=== PATIENT | female | born 1990 | race African-American/Black ===

== ENCOUNTER 2016-11-06 10:27 | Emergency (ER) | payer MEDICAID ==
[2016-11-06] MEDS ORDERED: IBUPROFEN 800 MG TABLET PO ONE (10:45)
--- NOTE | 2016-11-06 10:45 | ER Document Report ---
ED Medical Screen (RME) - General Stated Complaint: CHEST PAIN AND DIFFICULTY BREATHING Time seen by provider: 10:42 Mode of Arrival: Ambulatory Information source: Patient Notes: 26-year-old female complaining of deep left-sided chest pain which is worse with movement and trying to jog this morning. Hurts when she takes a deep breath. Onset was September 28 and it has been intermittent since. Injury. No recent upper respiratory infection. No fever. Implanon. Each episode lasts for days and it's 24 hours a day. TRAVEL OUTSIDE OF THE [place] IN LAST 30 DAYS: No - Related Data Allergies/Adverse Reactions: No Known Allergies Allergy (Verified 03/03/16 14:13) Past Medical History Renal/ Medical History: Reports: Hx Ovarian Cysts Past Surgical History: Reports: Hx Section - x2 - Immunizations Immunizations up to date: Yes Hx Diphtheria, Pertussis, Tetanus Vaccination: Yes - received in clinic during [facility] Physical Exam - Vital signs Vitals: Temp Pulse Resp BP Pulse Ox 99.7 F 83 16 110/63 100 11/06/16 10:41 11/06/16 10:41 11/06/16 10:41 11/06/16 10:41 11/06/16 10:41 Course - Vital Signs Vital signs: Temp Pulse Resp BP Pulse Ox 99.7 F 83 16 110/63 100 11/06/16 10:41 11/06/16 10:41 11/06/16 10:41 11/06/16 10:41 11/06/16 10:41
--- NOTE | 2016-11-06 10:56 | ER Document Report ---
ED Cardiac - General Chief Complaint: Chest Pain Stated Complaint: CHEST PAIN AND DIFFICULTY BREATHING Mode of Arrival: Ambulatory Notes: The patient is a 26-year-old female who presents with 1 week of left sided chest pain, worse when she moves her arms and when she bends down to reach something. She has had this in the past and was told it was gas. She is not taking anything to help. She denies shortness of breath, nausea, vomiting, abdominal pain, leg swelling, OCP use, hemoptysis, family history of early cardiac problems, recent immobilization or surgery or fever. TRAVEL OUTSIDE OF THE [place] IN LAST 30 DAYS: No - Related Data Allergies/Adverse Reactions: No Known Allergies Allergy (Verified 03/03/16 14:13) Past Medical History - General Information source: Patient - Social History Smoking Status: Never Smoker Family History: Reviewed & Not Pertinent Renal/ Medical History: Reports: Hx Ovarian Cysts. Denies: Hx Peritoneal Dialysis Past Surgical History: Reports: Hx Section - x2 - Immunizations Immunizations up to date: Yes Hx Diphtheria, Pertussis, Tetanus Vaccination: Yes - received in clinic during [facility] Review of Systems - Review of Systems Notes: REVIEW OF SYSTEMS: CONSTITUTIONAL: -fevers, -chills EENT: -eye pain, -difficulty swallowing, -nasal congestion CARDIOVASCULAR: +chest pain, -syncope. RESPIRATORY: -cough, -SOB GASTROINTESTINAL: -abdominal pain, - nausea, -vomiting, -diarrhea GENITOURINARY: -dysuria, -hematuria MUSCULOSKELETAL: -back pain, -neck pain SKIN: -rash or skin lesions. HEMATOLOGIC: -easy bruising or bleeding. LYMPHATIC: -swollen, enlarged glands. NEUROLOGICAL: -altered mental status or loss of consciousness, -headache, - neurologic symptoms PSYCHIATRIC: -anxiety, -depression. ALL OTHER SYSTEMS REVIEWED AND NEGATIVE. Physical Exam - Vital signs Vitals: Temp Pulse Resp BP Pulse Ox 99.7 F 83 16 110/63 100 11/06/16 10:41 11/06/16 10:41 11/06/16 10:41 11/06/16 10:41 11/06/16 10:41 - Notes Notes: PHYSICAL EXAMINATION: GENERAL: Well-appearing, well-nourished and in no acute distress. HEAD: Atraumatic, normocephalic. EYES: Pupils equal round and reactive to light, extraocular movements intact, sclera anicteric, conjunctiva are normal. ENT: nares patent, oropharynx clear without exudates. Moist mucous membranes. NECK: Normal range of motion, supple without lymphadenopathy LUNGS: Breath sounds clear to auscultation bilaterally and equal. No wheezes rales or rhonchi. HEART: Regular rate and rhythm without murmurs. Tenderness over left anterior chest wall. ABDOMEN: Soft, nontender, normoactive bowel sounds. No guarding, no rebound. No masses appreciated. EXTREMITIES: Normal range of motion, no pitting or edema. No cyanosis. NEUROLOGICAL: Cranial nerves grossly intact. Normal speech, normal gait. Normal sensory, motor, and reflex exams. PSYCH: Normal mood, normal affect. SKIN: Warm, Dry, normal turgor, no rashes or lesions noted. Course - Re-evaluation Re-evalutation: PERC negative. HEART score 0. Patient's symptoms atypical for ACS, aortic dissection or PE at this time. After ibuprofen, patient's pain has improved. Instructed patient to continue Naprosyn and use heating pads and ice pads to help out with her chest wall pain. Will have patient follow with her primary care physician for further evaluation and treatment of this chest pain in 1-2 days. Patient comfortable with plan. Answered all questions and she understands. - Vital Signs Vital signs: Temp Pulse Resp BP Pulse Ox 99.7 F 83 16 110/63 100 11/06/16 10:41 11/06/16 10:41 11/06/16 10:41 11/06/16 10:41 11/06/16 10:41 - EKG Interpretation by Pa EKG shows normal: Sinus rhythm, Clover, Intervals, QRS Complexes, ST-T Waves Discharge - Discharge Clinical Impression: Chest pain Qualifiers: Chest pain type: intercostal pain Qualified Code(s): R07.82 - Intercostal pain Condition: Good Disposition: HOME, SELF-CARE Additional Instructions: CHEST PAIN OF UNCLEAR CAUSE: The exact cause of your chest pain isn't clear. Fortunately, there is no evidence of a dangerous medical condition. Further testing may be required to find the source of the pain. Most often, we find that this pain is coming from the chest wall -- the muscles or rib joints in the chest. But chest pain can come from the lung and lung lining, the esophagus, the heart valves or heart lining, and even the stomach or gallbladder. Rest. Eat lightly until the pain is gone. We may prescribe medicine for pain and inflammation. You should call the physician immediately if the pain radiates to the shoulder, jaw or arms; if you start to run a fever or develop a cough; or if you develop shortness of breath, or other new or alarming symptoms. NORMAL EXAM AND WORKUP: At this time, your examination and workup show no significant abnormality. No significant abnormal physical findings were noted. All laboratory, EKG, and imaging (x-ray, CT scans, ultrasound) studies that were ordered show no significant abnormality. Although your examination and all studies that were ordered showed no significant abnormal finding, there are no examinations and no studies that are 100% accurate. There is always the possibility that some abnormality could exist and not be detected with physical examination or within the limits and capabilities of laboratory and other studies. You should return or follow up as you were instructed on your visit today for further evaluation if your symptoms do not resolve. CHEST WALL PAIN: Your chest pain may be coming from the chest wall. This is often caused by straining the muscles or joints in the chest during physical activity, direct trauma, coughing, or vigorous vomiting. Persons with arthritis are especially prone to this type of pain, due to inflammation of the cartilage joints near the breast bone. Occasionally, no cause can be found. Rest from strenuous physical activity. This kind of chest pain is usually made worse by movement of the chest. Depending on the symptoms, we may prescribe medicine for pain, muscle relaxation, and antiinflammatory effects. If the pain is new, and seems to be due to muscle strain, cold packs can help. Otherwise, apply gentle warmth to the painful area for 15 minutes every hour or two. You should call contact the doctor immediately if things change. Further evaluation is needed if you develop a fever or cough, if the nature of the pain changes, or if you become short of breath. ACID REFLUX DISEASE (GERD): Gastro-Esophageal Reflux Disease (GERD) is caused by stomach acid refluxing back up into the esophagus. The valve at the end of the esophagus may be weak. This is common in persons with a hiatal hernia. GERD symptoms can include indigestion, chest pain, heartburn, or food "sticking." Certain foods, alcohol, and aspirin can make GERD worse. Treatment depends on the severity. Usually, antacids or acid-suppressing medicines are used. When the esophagus is acutely inflamed, the physician will often prescribe membrane-protective drugs such as Carafate. Some patients benefit from medication such as Reglan that tightens the valve at the top of the stomach. Avoid those foods that bring on your symptoms. For many people, these foods are coffee, chocolate, onions, garlic, and carbonated drinks. Don't use alcohol, aspirin, caffeine, or tobacco. Don't eat late at night -- within 4 hours of bedtime. Don't over-eat. If necessary, elevate the head of your bed about 4 inches so that stomach acid will not roll up into your esophagus. Call the doctor if you develop severe chest pain, inability to swallow fluids, fever, or worsening symptoms. FOLLOW-UP CARE: If you have been referred to a physician for follow-up care, call the physician s office for an appointment as you were instructed or within the next two days. If you experience worsening or a significant change in your symptoms, notify the physician immediately or return to the Emergency Department at any time for re-evaluation. Referrals: HOUSTON DARLING FNP [Primary Care Provider] - Follow up as needed
[2016-11-06 12:55] VITALS: BP 114/56
--- NOTE | 2016-11-06 19:29 | EKG REPORT ---
SEVERITY:- NORMAL ECG - SINUS RHYTHM : Confirmed by: Julio Schroeder MD 06-Nov-2016 19:27:55
== END 2016-11-06 12:51 | disposition home or self-care (01) ==
LOC: ER 10:27
DX: R07.82 Intercostal pain (principal); R06.02 Shortness of breath
CPT/HCPCS: 93005; 99285; 81025; 71020; 93010; J3490

== ENCOUNTER 2017-03-11 00:38 | Emergency (ER) | payer MEDICAID ==
--- NOTE | 2017-03-11 01:36 | RADIOLOGY REPORT (SQ) ---
EXAM DESCRIPTION: KNEE LEFT 4 VIEW COMPLETED DATE/TIME: 03/11/2017 1:29 am REASON FOR STUDY: pain COMPARISON: None. NUMBER OF VIEWS: Four views. TECHNIQUE: AP, lateral, and both oblique radiographic images acquired of the left knee. LIMITATIONS: None. FINDINGS: MINERALIZATION: Normal. BONES: No acute fracture or dislocation. No worrisome bone lesions. JOINT: No effusion. SOFT TISSUES: No soft tissue swelling. No radio-opaque foreign body. OTHER: No other significant finding. IMPRESSION: NEGATIVE STUDY OF THE LEFT KNEE. NO RADIOGRAPHIC EVIDENCE OF ACUTE INJURY. TECHNICAL DOCUMENTATION: JOB ID: [id number] [employer]- All Rights Reserved
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
[2017-03-11 02:10] VITALS: BP 105/51
== END 2017-03-11 02:09 | disposition home or self-care (01) ==
LOC: ER 00:38
DX: M25.562 Pain in left knee (principal)
CPT/HCPCS: 99283

== ENCOUNTER 2017-10-30 12:58 | Emergency (ER) | payer MEDICAID ==
[2017-10-30 13:14] VITALS: BP 118/64
--- NOTE | 2017-10-30 13:29 | ER Document Report ---
HPI - HPI Pain Level: 5 Notes: Patient is a 27-year-old female no significant past medical history presents the ED complaining of nasal congestion/discharge, sore throat, dry nonproductive cough, subjective fever, body ache x 3 days with 1 episode of posttussive emesis without hematemesis. Patient states that she does have trouble breathing when she is having 1 of her coughing fits, but is otherwise ambulatory without any pain or dyspnea on exertion. Patient states she is still eating and drinking without any difficulties. She is urinating normally having normal bowel movements. She has not been using any [id number] meds for symptoms. Patient denies any smoking or IV drug use. Patient denies any drug allergies. Denies any headache, neck pain, chest pain, palpitations, syncope, shortness of breath, wheeze, dyspnea, abdominal pain, nausea/vomiting/ diarrhea, urinary retention, dysuria, hematuria, or rash. - ROS Systems Reviewed and Negative: Yes All other systems reviewed and negative - REPRODUCTIVE Reproductive: REPORTS: : Past Medical History - Social History Smoking Status: Never Smoker Family History: Reviewed & Not Pertinent Renal/ Medical History: Reports: Hx Ovarian Cysts. Denies: Hx Peritoneal Dialysis Past Surgical History: Reports: Hx Section - x2 - Immunizations Immunizations up to date: Yes Hx Diphtheria, Pertussis, Tetanus Vaccination: Yes - received in clinic during [facility] Vertical Provider Document - CONSTITUTIONAL Agree With Documented VS: Yes Notes: PHYSICAL EXAMINATION: GENERAL: Well-appearing, well-nourished and in no acute distress. A&Ox4. Answers questions appropriately. Moves comfortably w/o notable distress HEAD: Atraumatic, normocephalic. EYES: Pupils equal round and reactive to light, extraocular movements intact, sclera anicteric, conjunctiva are normal. ENT: EAC clear b/l. TM's intact b/l without erythema, fluid, or perforation. Nares patent and with clear discharge. oropharynx mild erythema without exudates. 1+ tonsilar hypertrophy without erythema or exudate. No palatine shift. Uvula midline. No tongue protrusion. No drooling, hoarseness, or airway compromise. Moist mucous membranes. No sinus tenderness. NECK: Normal range of motion, supple without lymphadenopathy. No rigidity/ meningismus. LUNGS: Breath sounds clear to auscultation bilaterally and equal. No wheezes rales or rhonchi. No retractions HEART: Regular rate and rhythm without murmurs, rubs, gallops. ABDOMEN: Soft, nontender, nondistended abdomen. No guarding, no rebound. No masses appreciated. Normal bowel sounds present. No CVA tenderness bilaterally. No hepatosplenomegaly. NEUROLOGICAL: Normal speech, normal gait. Normal sensory, motor exams PSYCH: Normal mood, normal affect. SKIN: Warm, Dry, normal turgor, no rashes or lesions noted. - INFECTION CONTROL TRAVEL OUTSIDE OF THE [place] IN LAST 30 DAYS: No - RESPIRATORY O2 Sat by Pulse Oximetry: 99 Course - Re-evaluation Re-evalutation: 10/30/17 14:07 Patient is an afebrile, well-hydrated, 27-year-old female who presents to the ED with acute URI, suspect viral at this time. Vitals are stable. PE is otherwise unremarkable. Rapid influenza was negative. Rapid strep was negative & throat culture pending. No other labs or imaging warranted at this time based on H&P. Low suspicion for any meningitis, sepsis, peritonsillar/ pharyngeal abscess, respiratory compromise, Ta's, or other emergent systemic condition at this time. Patient is aware this condition can change from initial presentation and she needs to monitor symptoms closely. Conservative measures otherwise for symptoms. Recheck with your PCM in 3-5 days. Return to the ED with any worsening/concerning symptoms otherwise as reviewed in discharge. Patient is in agreement. - Vital Signs Vital signs: Temp Pulse Resp BP Pulse Ox 98.8 F 76 14 118/64 99 10/30/17 13:13 10/30/17 13:13 10/30/17 13:13 10/30/17 13:13 10/30/17 13:13 Discharge - Discharge Clinical Impression: Acute URI Condition: Stable Disposition: HOME, SELF-CARE Instructions: Upper Respiratory Illness ([facility]) Additional Instructions: Maintain adequate fluid intake Take meds as directed tylenol/ibuprofen as needed over the counter cold medication as needed for symptoms Humidified air may help Wash your hands regularly Wear a mask when coughing F/u: with your PCM in 3-5 days for a recheck Return to the ED with any fever, worsening pain, chest pain, palpitations, syncope, worsening CASTRO, neck pain/stiffness, shortness of breath, wheezing, drooling, trouble swallowing/breathing, abdominal pain, n/v/d, rash, or worsening/concerning symptoms otherwise. Referrals: [facility] [Provider Group] - Follow up as needed [facility] [Provider Group] - Follow up as needed
[2017-10-30 14:02] LABS: A TYPE INFLUENZA AG NEGATIVE (NEGATIVE); B INFLUENZA AG NEGATIVE (NEGATIVE)
== END 2017-10-30 14:05 | disposition home or self-care (01) ==
LOC: ER 12:58
DX: J06.9 Acute upper respiratory infection, unspecified (principal); R09.81 Nasal congestion; R09.89 Other specified symptoms and signs involving the circulatory and respiratory systems; J02.9 Acute pharyngitis, unspecified; R05 Cough; R50.9 Fever, unspecified; M79.1 Myalgia
CPT/HCPCS: 87070; 87804; 87880; 99283

== ENCOUNTER 2017-12-17 12:22 | Emergency (ER) | payer SELFPAY ==
[2017-12-17] MEDS ORDERED: ONDANSETRON 4 MG TAB.RAPDIS PO ONE (12:49)
[2017-12-17] MEDS ORDERED: DICYCLOMINE HCL 20 MG TABLET PO ONE (12:49)
[2017-12-17] MEDS ORDERED: METOCLOPRAMIDE HCL 10 MG TABLET PO ONE (14:52)
--- NOTE | 2017-12-17 16:02 | ER Document Report ---
ED GI/ - General Chief Complaint: Nausea/Vomiting/Diarrhea Stated Complaint: ABDOMINAL PAIN,VOMITING,DIARRHEA Time Seen by Provider: 12/17/17 12:45 Mode of Arrival: Ambulatory Information source: Patient Notes: Patient is a 27-year-old female who presents to the ER today for 1 day of nausea , vomiting, watery diarrhea, abdominal cramping all over. Patient admits to body aches and chills, denies any fever that she knows of but has not taken her temperature. Patient states that she has not been able to keep any fluids down since last night. TRAVEL OUTSIDE OF THE [place] IN LAST 30 DAYS: No - Related Data Allergies/Adverse Reactions: acetaminophen [From Vicodin] Allergy (Intermediate, Verified 12/17/17 12:24) Hives hydrocodone [From Vicodin] Allergy (Intermediate, Verified 12/17/17 12:24) Hives tramadol Allergy (Intermediate, Verified 12/17/17 12:24) Hives Past Medical History - General Information source: Patient - Social History Smoking Status: Never Smoker Chew tobacco use (# tins/day): No Frequency of alcohol use: None Drug Abuse: None Family History: Reviewed & Not Pertinent Patient has suicidal ideation: No Patient has homicidal ideation: No Renal/ Medical History: Reports: Hx Ovarian Cysts. Denies: Hx Peritoneal Dialysis Past Surgical History: Reports: Hx Section - x2 - Immunizations Immunizations up to date: Yes Hx Diphtheria, Pertussis, Tetanus Vaccination: Yes - received in clinic during [facility] Review of Systems - Review of Systems Constitutional: No symptoms reported EENT: No symptoms reported Cardiovascular: No symptoms reported Respiratory: No symptoms reported Gastrointestinal: See HPI Genitourinary: No symptoms reported Female Genitourinary: No symptoms reported Musculoskeletal: No symptoms reported Skin: No symptoms reported Hematologic/Lymphatic: No symptoms reported Neurological/Psychological: No symptoms reported Physical Exam - Vital signs Vitals: Temp Pulse Resp BP Pulse Ox 98.2 F 93 16 124/81 98 12/17/17 12:25 12/17/17 12:25 12/17/17 12:25 12/17/17 12:25 12/17/17 12:25 - Notes Notes: PHYSICAL EXAMINATION: GENERAL: Mildly ill-appearing, but in no acute distress. HEAD: Atraumatic, normocephalic. EYES: Pupils equal round and reactive to light, extraocular movements intact, sclera anicteric, conjunctiva are normal. ENT: ear canals without erythema or foreign body, TMs pearly carbone with good bony landmarks, nares patent, oropharynx clear without exudates. Moist mucous membranes. NECK: Normal range of motion, supple without lymphadenopathy LUNGS: CTAB and equal. No wheezes rales or rhonchi. HEART: Regular rate and rhythm without murmurs ABDOMEN: Soft, no tenderness. No guarding, no rebound BACK: no vertebral tenderness, normal ROM GI/: no CVA tenderness EXTREMITIES: Normal range of motion, no pitting edema. No cyanosis. NEUROLOGICAL: Cranial nerves grossly intact. Normal sensory/motor exams. PSYCH: Normal mood, normal affect. SKIN: Warm, Dry, normal turgor, no rashes or lesions noted Course - Re-evaluation Re-evalutation: 12/17/17 16:06 Abdominal exam was completely benign, patient states that she was running back and forth to the bathroom having watery diarrhea and vomiting, dry heaving here even after Zofran was given. Reglan did help her belly pain and she has not vomited since being given the Reglan. Patient did have some fluids and tolerated them well. I will send patient home with Reglan, Bentyl and a prescription for Phenergan just in case the Reglan does not work because she is still complaining of being nauseated although she is not vomiting. - Vital Signs Vital signs: Temp Pulse Resp BP Pulse Ox 98.2 F 93 16 124/81 98 12/17/17 12:25 12/17/17 12:25 12/17/17 12:25 12/17/17 12:25 12/17/17 12:25 Discharge - Discharge Clinical Impression: Gastroenteritis Condition: Stable Disposition: HOME, SELF-CARE Instructions: Gastroenteritis (adult) ([facility]) Additional Instructions: Return immediately for any new or worsening symptoms. Follow up with primary care provider, call tomorrow to make followup appointment. Drink plenty of fluids. Prescriptions: Dicyclomine HCl [Bentyl 20 mg Tablet] 20 mg PO QID #20 tablet Metoclopramide HCl [Reglan 10 mg Tablet] 1 - 2 tab PO Q4 PRN #25 tablet PRN Reason: Promethazine HCl [Phenergan 25 mg Tablet] 1 - 2 tab PO Q6H PRN #15 tablet PRN Reason: Forms: Return to Work
[2017-12-17 16:35] VITALS: BP 95/53
== END 2017-12-17 16:12 | disposition home or self-care (01) ==
LOC: ER 12:22
DX: K52.9 Noninfective gastroenteritis and colitis, unspecified (principal); R11.2 Nausea with vomiting, unspecified; R10.84 Generalized abdominal pain; Z88.5 Allergy status to narcotic agent
CPT/HCPCS: 99284; J3490; S0119

== ENCOUNTER 2018-03-07 14:35 | Emergency (ER) | payer MEDICAID ==
[2018-03-07 14:40] VITALS: BP 115/59
--- NOTE | 2018-03-07 14:58 | ER Document Report ---
HPI - HPI Pain Level: 4 Notes: Patient is a 27-year-old female with no significant past medical history who presents to the ED complaining of pain to the PIP joint of her fourth left digit of the hand times 1-2 days. 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 She has not noticed any obvious swelling, bruising, or deformity. Denies any injury otherwise. No redness or warmth associated. Pain does not radiate. Pain is worsened when she tries to flex her finger. Patient states that her finger does feel stiff at times. Denies any headache, fever, neck pain, URI, sore throat, chest pain, palpitations, syncope, cough, shortness of breath, wheeze, dyspnea, abdominal pain, nausea/vomiting/diarrhea, urinary retention, dysuria, hematuria, numbness/tingling, muscle paralysis/weakness, or rash. - ROS Systems Reviewed and Negative: Yes All other systems reviewed and negative - REPRODUCTIVE Reproductive: REPORTS: : Past Medical History - Social History Smoking Status: Never Smoker Family History: Reviewed & Not Pertinent Renal/ Medical History: Reports: Hx Ovarian Cysts. Denies: Hx Peritoneal Dialysis Past Surgical History: Reports: Hx Section - x2 - Immunizations Immunizations up to date: Yes Hx Diphtheria, Pertussis, Tetanus Vaccination: Yes - received in clinic during [facility] Vertical Provider Document - CONSTITUTIONAL Agree With Documented VS: Yes Notes: PHYSICAL EXAMINATION: GENERAL: Well-appearing, well-nourished and in no acute distress and eating fast food during the visit. LUNGS: Breath sounds clear to auscultation bilaterally and equal. No wheezes rales or rhonchi. HEART: Regular rate and rhythm without murmurs, rubs, gallops. Musculoskeletal: Left hand: No erythema, warmth, swelling, ecchymosis, deformity. FROM to passive/active. Strength 5+/5. + tenderness to palp of the PIP jt 4th digit. N/V intact distal. Extremities: No cyanosis, clubbing, or edema b/l. Peripheral pulses 2+. Capillary refill less than 3 seconds. NEUROLOGICAL: Normal speech, normal gait. Normal sensory, motor exams PSYCH: Normal mood, normal affect. SKIN: Warm, Dry, normal turgor, no rashes or lesions noted. - INFECTION CONTROL TRAVEL OUTSIDE OF THE [place] IN LAST 30 DAYS: No Course - Re-evaluation Re-evalutation: 03/07/18 15:36 Patient is an afebrile, well-hydrated, 27-year-old female who presents to the ED with pain to the left hand at the fourth digit PIP joint, suspect inflammatory. Vitals are acceptable. PE is otherwise unremarkable for any neurovascular compromise, obvious tendon/ligament rupture, obvious fracture/ dislocation, septic joint. X-ray was unremarkable for any acute pathology. No other labs or imaging warranted at this time based on H&P. I will send her home with a prescription for naproxen. Conservative measures otherwise for symptoms. Recheck with your PCM in 3-5 days. Consider consult orthopedics. Return to the ED with any worsening/concerning symptoms otherwise as reviewed discharge. Patient is in agreement. - Vital Signs Vital signs: Temp Pulse Resp BP Pulse Ox 98.8 F 67 16 115/59 L 97 03/07/18 14:38 03/07/18 14:38 03/07/18 14:38 03/07/18 14:38 03/07/18 14:38 Discharge - Discharge Clinical Impression: Finger pain, left Condition: Stable Disposition: HOME, SELF-CARE Additional Instructions: Rest, Ice, Compression, Elevation Tylenol/ibuprofen as needed Light stretches daily Strength exercises as able Moist heat and massage may help F/u with your PCP in 3-5 days for a recheck Consider consult(s) with Orthopedics/physical therapy for ongoing/worsening symptoms Return to the ED with any worsening symptoms and/or development of fever, headache, chest pain, palpitations, syncope, shortness of breath, trouble breathing, abdominal pain, n/v/d, muscle weakness/paralysis, numbness/tingling, swelling, redness, or other worsening symptoms that are concerning to you. Prescriptions: Naproxen 500 mg PO BID PRN #30 tablet PRN Reason: Referrals: [facility] ([facility]) [Provider Group] - Follow up as needed
--- NOTE | 2018-03-07 15:35 | RADIOLOGY REPORT (SQ) ---
EXAM DESCRIPTION: HAND LEFT 3 VIEWS COMPLETED DATE/TIME: 03/07/2018 3:21 pm REASON FOR STUDY: 4th PIP jt pain Chronic pain, no known injury COMPARISON: None. EXAM PARAMETERS: NUMBER OF VIEWS: Three views. TECHNIQUE: AP, lateral and oblique radiographic images acquired of the left hand. LIMITATIONS: None. FINDINGS: MINERALIZATION: Normal. BONES: No acute fracture or dislocation. No worrisome bone lesions. JOINTS: No effusions. SOFT TISSUES: No soft tissue swelling. No foreign body. OTHER: No other significant finding. IMPRESSION: NEGATIVE STUDY OF THE LEFT HAND. NO RADIOGRAPHIC EVIDENCE OF ACUTE INJURY. TECHNICAL DOCUMENTATION: JOB ID: [id number] [employer]- All Rights Reserved Reading location - IP/workstation name: [email or web address]
== END 2018-03-07 15:45 | disposition home or self-care (01) ==
LOC: ER 14:35
DX: M79.645 Pain in left finger(s) (principal)
CPT/HCPCS: 99283

== ENCOUNTER 2018-05-27 14:02 | Emergency (ER) | payer MEDICAID ==
[2018-05-27 14:15] VITALS: BP 98/53
[2018-05-27 15:12] LABS: APPEARANCE,URINE SLIGHTLY-CLOUDY; BILIRUBIN,URINE NEGATIVE (NEGATIVE); COLOR,URINE YELLOW; GLUCOSE, URINE NEGATIVE (NEGATIVE); KETONES,URINE NEGATIVE (NEGATIVE); LEUKOCYTE ESTERASE,URINE MODERATE (NEGATIVE); NITRITE,URINE NEGATIVE (NEGATIVE); PROTEIN,URINE 30 mg/dL (NEGATIVE); URINE SPECIFIC GRAVITY 1.019
[2018-05-27] MEDS ORDERED: PHENAZOPYRIDINE HCL 200 MG TABLET PO ONE (15:18)
[2018-05-27] MEDS ORDERED: CIPROFLOXACIN HCL 500 MG TABLET PO ONE (15:18)
--- NOTE | 2018-05-27 15:21 | ER Document Report ---
ED GI/ - General Chief Complaint: Urinary Problem Stated Complaint: URINATION PAIN Time Seen by Provider: 05/27/18 14:36 Mode of Arrival: Ambulatory Information source: Patient Notes: 27-year-old female presented ED for complaint of frequency urgency and burning with urination. She states she also had back pain. She denied any unprotected sex or any concern for any STDs. Patient is alert and oriented respirations regular and unlabored. Patient states speaks with full sentences walks with a even steady gait. She was afebrile at this time. TRAVEL OUTSIDE OF THE [place] IN LAST 30 DAYS: No - HPI Patient complains to provider of: Other - Very frequency urgency and burning with urination. She also has suprapubic tenderness Onset: Other - 2 days Timing/Duration: Gradual Quality of pain: Burning Severity at maximum: Severe Severity in ED: Moderate Pain Level: 3 Location: Suprapubic Vaginal bleeding (Compared to normal period): None Associated symptoms: Urinary frequency, Urinary urgency, Other - Suprapubic pain and burning with urination. Patient states she had back pain earlier but no flank pain noted at time of assessment Exacerbated by: Other - Urination Relieved by: Denies Similar symptoms previously: Yes Recently seen / treated by doctor: No - Related Data Allergies/Adverse Reactions: hydrocodone [From Vicodin] Allergy (Intermediate, Verified 05/27/18 14:06) Hives tramadol Allergy (Intermediate, Verified 05/27/18 14:06) Hives Past Medical History - General Information source: Patient - Social History Smoking Status: Never Smoker Cigarette use (# per day): No Chew tobacco use (# tins/day): No Smoking Education Provided: No Frequency of alcohol use: Rare Drug Abuse: None Occupation: Call center Lives with: Family Family History: Reviewed & Not Pertinent Patient has suicidal ideation: No Patient has homicidal ideation: No - Past Medical History Cardiac Medical History: Reports: None Pulmonary Medical History: Reports: None EENT Medical History: Reports: None Neurological Medical History: Reports: None Endocrine Medical History: Reports: None Renal/ Medical History: Reports: Hx Ovarian Cysts Malignancy Medical History: Reports: None GI Medical History: Reports: None Musculoskeletal Medical History: Reports None Skin Medical History: Reports None Psychiatric Medical History: Reports: None Traumatic Medical History: Reports: None Infectious Medical History: Reports: None Past Surgical History: Reports: Hx Section - x2 - Immunizations Immunizations up to date: Yes Hx Diphtheria, Pertussis, Tetanus Vaccination: Yes - received in clinic during [facility] Review of Systems - Review of Systems Constitutional: No symptoms reported EENT: No symptoms reported Cardiovascular: No symptoms reported Respiratory: No symptoms reported Gastrointestinal: No symptoms reported Genitourinary: Burning, Frequency, Urgency, Other - Suprapubic tenderness Female Genitourinary: No symptoms reported Musculoskeletal: No symptoms reported Skin: No symptoms reported Hematologic/Lymphatic: No symptoms reported Neurological/Psychological: No symptoms reported -: Yes All other systems reviewed and negative Physical Exam - Vital signs Vitals: Temp Pulse Resp BP Pulse Ox 99.0 F 102 H 18 98/53 L 100 05/27/18 14:14 05/27/18 14:14 05/27/18 14:14 05/27/18 14:14 05/27/18 14:14 Interpretation: Normal - General General appearance: Appears well, Alert - HEENT Head: Normocephalic, Atraumatic Eyes: Normal Pupils: PERRL - Respiratory Respiratory status: No respiratory distress Chest status: Nontender Breath sounds: Normal Chest palpation: Normal - Cardiovascular Rhythm: Regular Heart sounds: Normal auscultation Murmur: No - Abdominal Inspection: Normal Distension: No distension Bowel sounds: Normal Tenderness: Tender - Suprapubic tenderness Organomegaly: No organomegaly - Back Back: Normal, Nontender. No: Tender, CVA tenderness - Extremities General upper extremity: Normal inspection, Nontender, Normal color, Normal ROM , Normal temperature General lower extremity: Normal inspection, Nontender, Normal color, Normal ROM , Normal temperature, Normal weight bearing. No: Jaciel's sign - Neurological Neuro grossly intact: Yes Cognition: Normal Orientation: AAOx4 Chase Coma Scale Eye Opening: Spontaneous Jaimie Coma Scale Verbal: Oriented Chase Coma Scale Motor: Obeys Commands Jaimie Coma Scale Total: 15 Speech: Normal Motor strength normal: LUE, RUE, LLE, RLE Sensory: Normal - Psychological Associated symptoms: Normal affect, Normal mood - Skin Skin Temperature: Warm Skin Moisture: Dry Skin Color: Normal Course - Re-evaluation Re-evalutation: 05/27/18 21:49 Urine results discussed with patient. Patient was treated with Cipro and Pyridium. Patient was discharged home with prescriptions for Cipro and Pyridium and instructed to follow-up with her primary doctor in about a week to get a recheck. Patient was discharged home after she verbalized understanding and agreement with treatment plan. - Vital Signs Vital signs: Temp Pulse Resp BP Pulse Ox 99.0 F 102 H 18 98/53 L 100 05/27/18 14:14 05/27/18 14:14 05/27/18 14:14 05/27/18 14:14 05/27/18 14:14 - Laboratory Laboratory results interpreted by me: 05/27/18 14:10 Urine Protein 30 H Urine Urobilinogen 2.0 H Ur Leukocyte Esterase MODERATE H Urine Ascorbic Acid 40 H Discharge - Discharge Clinical Impression: UTI (urinary tract infection) Qualifiers: Urinary tract infection type: site unspecified Hematuria presence: without hematuria Qualified Code(s): N39.0 - Urinary tract infection, site not specified Condition: Stable Disposition: HOME, SELF-CARE Additional Instructions: URINARY TRACT INFECTION: Your evaluation indicates that you have a urinary tract infection. This is due to germs growing in the bladder. This is a common problem. This infection usually responds quickly to antibiotics. Your antibiotic should be taken exactly as prescribed. Drink plenty of fluids -- three to four quarts a day. Occasionally, a bladder anesthetic will be prescribed to help stop the feeling of urgency until the antibiotic has a chance to clear the infection. This may cause your urine to be dark orange. Certain urine infections require a culture. If the doctor obtained a culture, the results will be back in two days. You should call to see if a change in treatment is needed. A repeat urinalysis after you finish treatment is often recommended. The physician will let you know if further testing is required. Call the doctor if you develop fever, chills, flank pain, inability to urinate, or blood in the urine. CIPROFLOXACIN: You have been given an antibacterial agent, ciprofloxacin (Cipro). This medicine is not related to the penicillins, sulfas, cephalosporins, or tetracyclines. It is often given to patients who are allergic to these drugs. It has been chosen for you either because other drugs are not appropriate, or because of the nature of your problem. Cipro should not be taken with antacids, as these can decrease its effectiveness. It can be taken without regard to meals. CIPRO SHOULD NOT BE TAKEN BY CHILDREN, NURSING WOMEN, OR WOMEN. Although Cipro is usually well-tolerated, common side effects can include nausea and diarrhea. Contact your doctor if you experience any unusual symptoms while on this medication, such as joint pain or swelling, shortness of breath, wheezing, faintness, or hives. URINARY ANESTHETIC AGENT: You have been given a medication (Pyridium) for urinary tract discomfort. This medicine numbs the lining of the bladder and urethra, resulting in less pain, burning, and urgency. You may take it as needed, according to instructions. When the symptoms resolve, you can stop this medication (be sure to continue any other medications the doctor has given you). This medicine turns the urine a dark orange. It may stain underwear. Occasionally, it can cause nausea. Return for evaluation if there are any unexpected effects, such as itching, hives, or shortness of breath. FOLLOW-UP CARE: If you have been referred to a physician for follow-up care, call the physician s office for an appointment as you were instructed or within the next two days. If you experience worsening or a significant change in your symptoms, notify the physician immediately or return to the Emergency Department at any time for re-evaluation. Prescriptions: Ciprofloxacin HCl [Cipro 500 mg Tablet] 500 mg PO BID #14 tablet Phenazopyridine HCl [Pyridium 200 mg Tablet] 200 mg PO TID #15 tablet Forms: Return to Work Referrals: STEPH YBARRA I, [NO LOCAL MD] - Follow up as needed
== END 2018-05-27 15:27 | disposition home or self-care (01) ==
LOC: ER 14:02
DX: N39.0 Urinary tract infection, site not specified (principal); R35.0 Frequency of micturition; R39.15 Urgency of urination; M54.9 Dorsalgia, unspecified; R10.30 Lower abdominal pain, unspecified
CPT/HCPCS: 99283; 87086; 87088; 81001; 87186; J3490 ×2

== ENCOUNTER 2018-08-05 13:35 | Emergency (ER) | payer SELFPAY ==
[2018-08-05] MEDS ORDERED: KETOROLAC TROMETHAMINE 60 MG/2 ML SDV IM ONE (14:08)
[2018-08-05] MEDS ORDERED: DEXAMETHASONE SOD PHOS INJ 10 MG/1 ML VIAL IM ONE (14:08)
--- NOTE | 2018-08-05 14:11 | ER Document Report ---
ED Extremity Problem, Lower - General Chief Complaint: Knee Pain Stated Complaint: KNEE PAIN Time Seen by Provider: 08/05/18 13:52 Mode of Arrival: Ambulatory Information source: Patient Notes: 27-year-old female presented to ED for complaint of pain to her knee. She states she has chronic pain to this knee. She states every time that when it comes it feels up with fluid and becomes very tender. She states she had a previous injury long time ago and this happens frequently. She states after the cold a couple weeks ago the knee has been hurting. Patient is alert and oriented respirations regular and unlabored speaking in full sentences walks with steady gait. TRAVEL OUTSIDE OF THE [place] IN LAST 30 DAYS: No - HPI Patient complains to provider of: Pain Location: Knee Occurred: Other - Chronic with acute Hankinson exacerbation Onset/Duration: Intermittent Quality of pain: Achy, Throbbing Severity: Moderate Pain Level: 3 Recent injury: No Associated symptoms: Painful ambulation Exacerbated by: Movement, Walking Relieved by: Elevation, Ice, Rest - Related Data Allergies/Adverse Reactions: hydrocodone [From Vicodin] Allergy (Intermediate, Verified 08/05/18 13:35) Hives tramadol Allergy (Intermediate, Verified 08/05/18 13:35) Hives Past Medical History - General Information source: Patient - Social History Smoking Status: Never Smoker Frequency of alcohol use: Rare Drug Abuse: None Occupation: call center Lives with: Family - kids Family History: Reviewed & Not Pertinent Patient has suicidal ideation: No Patient has homicidal ideation: No - Past Medical History Cardiac Medical History: Reports: None Pulmonary Medical History: Reports: None EENT Medical History: Reports: None Neurological Medical History: Reports: None Endocrine Medical History: Reports: None Renal/ Medical History: Reports: Hx Ovarian Cysts Malignancy Medical History: Reports: None GI Medical History: Reports: None Musculoskeletal Medical History: Reports Hx Musculoskeletal Deformity, Reports Hx Musculoskeletal Trauma Skin Medical History: Reports None Psychiatric Medical History: Reports: None Traumatic Medical History: Reports: None Infectious Medical History: Reports: None Past Surgical History: Reports: Hx Section - x2 - Immunizations Immunizations up to date: Yes Hx Diphtheria, Pertussis, Tetanus Vaccination: Yes - received in clinic during [facility] Review of Systems - Review of Systems Notes: REVIEW OF SYSTEMS: CONSTITUTIONAL : Denies fever, chills, or sweats. Denies recent illness. EENT: Denies eye, ear, throat, or mouth pain or symptoms. Denies nasal or sinus congestion or discharge. Denies throat, tongue, or mouth swelling or difficulty swallowing. CARDIOVASCULAR: Denies chest pain. Denies palpitations or racing or irregular heart beat. Denies ankle edema. RESPIRATORY: Denies cough, cold, or chest congestion. Denies shortness of breath, difficulty breathing, or wheezing. GASTROINTESTINAL: Denies abdominal pain or distention. Denies nausea, vomiting , or diarrhea. Denies blood in vomitus, stools, or per rectum. Denies black, tarry stools. Denies constipation. GENITOURINARY: Denies difficulty urinating, painful urination, burning, frequency, blood in urine, or discharge. FEMALE GENITOURINARY: Denies vaginal bleeding, heavy or abnormal periods, irregular periods. Denies vaginal discharge or odor. MUSCULOSKELETAL: Denies back or neck pain or stiffness. Skin complains of pain swelling and fluid on the right knee. She states this is chronic and happens every time he gets cold SKIN: Denies rash, lesions or sores. HEMATOLOGIC : Denies easy bruising or bleeding. LYMPHATIC: Denies swollen, enlarged glands. NEUROLOGICAL: Denies confusion or altered mental status. Denies passing out or loss of consciousness. Denies dizziness or lightheadedness. Denies headache. Denies weakness or paralysis or loss of use of either side. Denies problems with gait or speech. Denies sensory loss, numbness, or tingling. Denies seizures. PHYSICAL EXAMINATION: GENERAL: Well-appearing, well-nourished and in no acute distress. HEAD: Atraumatic, normocephalic. EYES: Pupils equal round and reactive to light, extraocular movements intact, conjunctiva are normal. ENT: Nares patent, oropharynx clear without exudates. Moist mucous membranes. NECK: Normal range of motion, supple without lymphadenopathy LUNGS: Breath sounds clear to auscultation bilaterally and equal. No wheezes rales or rhonchi. HEART: Regular rate and rhythm without murmurs ABDOMEN: Soft, nontender, nondistended abdomen. No guarding, no rebound. No masses appreciated. Female : deferred Musculoskeletal: She complains of tenderness to the right knee. She states it is swollen and has fluid on the knee. The right knee has normal range of motion , no pitting or edema. No cyanosis. NEUROLOGICAL: Cranial nerves grossly intact. Normal speech, normal gait. Normal sensory, motor exams PSYCH: Normal mood, normal affect. SKIN: Warm, Dry, normal turgor, no rashes or lesions noted. PSYCHIATRIC: Denies anxiety or stress. Denies depression, suicidal ideation, or homicidal ideation. ALL OTHER SYSTEMS REVIEWED AND NEGATIVE. Dictation was performed using [employer] voice recognition software Physical Exam - Vital signs Vitals: Temp Pulse Resp BP Pulse Ox 98.3 F 82 18 118/70 100 08/05/18 13:38 08/05/18 13:38 08/05/18 13:38 08/05/18 13:38 08/05/18 13:38 Course - Vital Signs Vital signs: Temp Pulse Resp BP Pulse Ox 98.5 F 79 18 103/56 L 99 08/05/18 15:36 08/05/18 15:36 08/05/18 15:36 08/05/18 15:36 08/05/18 15:36 - Diagnostic Test Radiology reviewed: Image reviewed, Reports reviewed Procedures - Immobilization Right Knee Time completed: 14:55 Immobilizer type: Knee immobilizer Performed by: PCT Post-Proc Neuro Vasc Exam: Normal Alignment checked and good: Yes Discharge - Discharge Clinical Impression: Pain in right knee Qualifiers: Chronicity: chronic Qualified Code(s): M25.561 - Pain in right knee Condition: Stable Disposition: HOME, SELF-CARE Instructions: Family Physicians / Practices Additional Instructions: You were seen today for knee pain that is an exacerbation of your chronic knee pain. The x-rays did not show any radiological abnormality. It does not show an effusion at this time. KNEE IMMOBILIZING SPLINT: The knee immobilizing splint will protect the injury while healing begins. This type of splint does not allow the knee to bend at all. No running or sports will be possible. If the splint allows painfree walking, it's giving adequate protection. If there is still significant pain, crutches may be needed as well. Don't do anything that hurts. Adjusted the splint, if necessary. The stiffeners on the sides are attached with Velcro, so they can be easily moved to adjust for thigh and calf size. If you need help with these adjustments, come back. You will lose muscle strength in the thigh while using this splint. The doctor will advise you if it's safe to do isometric knee exercises while you use it. ICE & ELEVATION: Apply ice packs frequently against the painful area. Many different schedules are recommended, such as "20 minutes on, 20 minutes off" or "one hour ice, two hours rest." If you need to work, you may need to go longer between ice treatments. You should plan to have the area ice packed AT LEAST one- fourth of the time. The ice should be applied over the wrap, tape, or splint, or over a layer of cloth -- not directly against the skin. Some ice bags have a built-in cloth and can be put directly on the skin. Your injured part should be elevated as much as possible over the next 48 hours. Try to keep the injury above the level of the heart. Avoid use of the injured area. Elevation and rest will decrease the swelling. USE OF KHIH-XVA-MWEPWGE IBUPROFEN: Ibuprofen (Advil, Nuprin, Medipren, Motrin IB) is a medication for fever and pain control. In addition, it has anti- inflammatory effects which may be beneficial, especially in the treatment of injuries. It's best to take ibuprofen with food. Persons with ulcer disease or allergy to aspirin should notify their physician of this before taking ibuprofen. Ibuprofen can be given every four to six hours, for a total of four doses daily. Age Pain or fever dose Antiinflammatory dose 6-8 yr 200 mg (1 tab) 200 mg (1 tab) 9-11 yr 200 mg (1 tab) 200-400 mg (1-2 tab) 11-14 yr 200-400 mg (1-2 tab) 400 mg (2 tab) 15-adult 400 mg (2 tab) 600 mg (3 tab) Knee Exercise Program It's important to strengthen the muscles around the knee. This protects the injured area and stabilizes a knee that's been loosened by ligament injury. EARLY - Even when motion of the knee is painful (even when wearing a splint ), you can begin isometric "quads" exercises. While sitting, hold the knee out, and contract the muscles to stiffen it. It shouldn't be straightened all the way -- stiffen it in a slightly-bent position. Lift the leg and draw a "T" with your foot, up to 100 times. When it becomes easy, add a weight on your foot. LATE - When the doctor advises you, you can begin moving the knee against resistance. The front muscles (quadriceps) are most important. While sitting at a [employer], straighten the knee forcefully while pushing a weight up with your ankle. Start with five to 10 pounds. Do 10 to 20 repetitions, increasing the weight as tolerated. Don't use more weight than is comfortable! Over a few weeks, work up to 35 to 50 pounds. Athletes should try to reach 70 to 90 pounds. Toradol Injection You have been given an injection of ketorolac tromethamine (Toradol). This is an excellent, safe drug for pain control. It also has potent antiinflammatory action. You should have significant pain relief within about one hour. Toradol is not addicting and is non-sedating. It does not interfere with driving or work. Call or return if you develop itching, hives, shortness of breath, or rash. STEROID MEDICATION: You have been given an injection of medicine of the cortisone/steroid class. This medication is used to control inflammation or allergy. It is often continued as a pill for a short period of time, until the acute process subsides. There are usually no side effects from short-term use of cortisone-like medications. Some persons feel an increased sense of well-being and are not sleepy at bedtime. Long-term use of cortisone medications is best avoided, unless required for a severe condition. If your condition does not remit, or relapses after the course of corticosteroid medication, you should consult your physician. FOLLOW-UP CARE: If you have been referred to a physician for follow-up care, call the physician s office for an appointment as you were instructed or within the next two days. If you experience worsening or a significant change in your symptoms, notify the physician immediately or return to the Emergency Department at any time for re-evaluation. Prescriptions: Cyclobenzaprine HCl [Flexeril 5 mg Tablet] 5 mg PO TID #7 tablet Naproxen 500 mg PO BIDP PRN #14 tablet PRN Reason: Forms: Parent Work Note, Return to Work Referrals: JOSÉ REED MD [ACTIVE STAFF] - Follow up as needed
--- NOTE | 2018-08-05 15:05 | RADIOLOGY REPORT (SQ) ---
EXAM DESCRIPTION: KNEE RIGHT 4 VIEWS COMPLETED DATE/TIME: 08/05/2018 2:42 pm REASON FOR STUDY: Atraumatic right knee pain and swelling COMPARISON: None. NUMBER OF VIEWS: Four views. TECHNIQUE: AP, lateral, and both oblique radiographic images acquired of the right knee. Scratched LIMITATIONS: None. FINDINGS: MINERALIZATION: Normal. BONES: No acute fracture or dislocation. No worrisome bone lesions. JOINT: No effusion. SOFT TISSUES: No soft tissue swelling. No radio-opaque foreign body. OTHER: No other significant finding. IMPRESSION: NEGATIVE STUDY OF THE RIGHT KNEE. NO RADIOGRAPHIC EVIDENCE OF ACUTE INJURY. TECHNICAL DOCUMENTATION: JOB ID: [id number] [email or web address]- All Rights Reserved Reading location - IP/workstation name: [email or web address]
[2018-08-05 15:37] VITALS: BP 103/56
== END 2018-08-05 15:38 | disposition home or self-care (01) ==
LOC: ER 13:35
DX: M25.561 Pain in right knee (principal); Z88.6 Allergy status to analgesic agent
CPT/HCPCS: 99283; 96372; 73564; L1830; J1885; J1100

== ENCOUNTER 2018-08-15 14:13 | Emergency (ER) | payer SELFPAY ==
[2018-08-15 14:22] VITALS: BP 111/59
--- NOTE | 2018-08-15 15:04 | ER Document Report ---
ED Extremity Problem, Lower - General Chief Complaint: Leg Pain Stated Complaint: LEG PAIN Time Seen by Provider: 08/15/18 14:46 Mode of Arrival: Ambulatory Information source: Patient Notes: Patient is a 27-year-old female comes into the emergency room complaint of leg pain on the left side leg is been asleep which started 3 weeks ago. Patient states that the leg feels numb that she cannot sit on her buttocks because the discomfort and pain. She denies any history of back problems she works in a [employer] center where she can sit or stand all day depending on her mood. Patient does not smoke she does have the Implan[employer] in but other than that she has no other medical problems. TRAVEL OUTSIDE OF THE [place] IN LAST 30 DAYS: No - HPI Patient complains to provider of: Pain. No: Injury, Swelling Location: Buttock, Thigh Occurred: Other - 3 weeks ago Where: Other - Unknown Onset/Duration: Gradual Quality of pain: Pressure, Sharp, Throbbing, Other - Numbness Pain Level: 3 Recent injury: No Exacerbated by: Movement, Walking, Other - Sitting Relieved by: Nothing - Related Data Allergies/Adverse Reactions: hydrocodone [From Vicodin] Allergy (Intermediate, Verified 08/15/18 14:14) Hives tramadol Allergy (Intermediate, Verified 08/15/18 14:14) Hives Past Medical History - General Information source: Patient - Social History Smoking Status: Never Smoker Cigarette use (# per day): No Chew tobacco use (# tins/day): No Smoking Education Provided: No Frequency of alcohol use: None Drug Abuse: None Family History: Reviewed & Not Pertinent Patient has suicidal ideation: No Patient has homicidal ideation: No Renal/ Medical History: Reports: Hx Ovarian Cysts. Denies: Hx Peritoneal Dialysis Musculoskeletal Medical History: Reports Hx Musculoskeletal Deformity, Reports Hx Musculoskeletal Trauma Past Surgical History: Reports: Hx Section - x2 - Immunizations Immunizations up to date: Yes Hx Diphtheria, Pertussis, Tetanus Vaccination: Yes - received in clinic during [facility] Review of Systems - Review of Systems Constitutional: No symptoms reported EENT: No symptoms reported Cardiovascular: No symptoms reported Respiratory: No symptoms reported Gastrointestinal: No symptoms reported Genitourinary: No symptoms reported Female Genitourinary: No symptoms reported Musculoskeletal: See HPI, Muscle pain Skin: No symptoms reported Hematologic/Lymphatic: No symptoms reported Neurological/Psychological: No symptoms reported -: Yes All other systems reviewed and negative Physical Exam - Vital signs Vitals: Temp Pulse Resp BP Pulse Ox 98.7 F 100 18 111/59 L 97 08/15/18 14:21 08/15/18 14:21 08/15/18 14:21 08/15/18 14:21 08/15/18 14:21 Interpretation: Normal - Notes Notes: PHYSICAL EXAMINATION: GENERAL: Patient is a well-nourished well-developed 27-year-old female in no apparent distress on physical examination tonight. She does appear somewhat uncomfortable and is found sitting on her laying on her right side. HEAD: Atraumatic, normocephalic. EYES: Pupils equal round and reactive to light, extraocular movements intact, conjunctiva are normal. ENT: Nares patent, oropharynx clear without exudates. Moist mucous membranes. NECK: Normal range of motion, supple without lymphadenopathy LUNGS: Breath sounds clear to auscultation bilaterally and equal. No wheezes rales or rhonchi. HEART: Regular rate and rhythm without murmurs Female : deferred Musculoskeletal: Examination of patient's area of concern tonight is that of the left hip and left buttocks and left thigh. He is a generalized. Patient states the pain is worse. Examination of patient's lower lumbar area does not show any signs of tenderness to palpation or percussion. There is no paravertebral tenderness. Patient has full rotation and flexion extension lumbar spine area without any discomfort. Further examination at the sciatic notch shows positive findings with deep ballottement to the sciatic notch area. To the point where patient is very uncomfortable with application of pressure to the area. Application of the pressure to the area also sends numbness down the leg. And patient describes this as the same type of discomfort she experiences on a regular basis. She displays good DTRs distally without any abnormalities. She has good strength against resistance with flexion and extension of the lower leg at the knee she has no sign of saddle paresthesia. Patient has good sensation distally and two-point discrimination lower extremities. NEUROLOGICAL: Normal speech, normal gait. Normal sensory, motor exams PSYCH: Normal mood, normal affect. SKIN: Warm, Dry, normal turgor, no rashes or lesions noted. Course - Re-evaluation Re-evalutation: 08/15/18 21:03 After evaluation and physical examination patient appears to have 1 of 2 conditions. First is a sciatica without any major lower back pain. With the radiation of the discomfort from the sciatic notch down the leg. The origin may be slightly lower than the lumbar spine. The second possibility is piriformis syndrome since the palpation found some muscle spasms in the area. At any rate we will treat this same as regular presentation of sciatica with anti-inflammatory and muscle relaxers. I also instructed patient to get a desk chair that is ergonomically adjusted so that she is not putting all her pressure in one spot. I have informed her that this may need further intervention and she should follow-up with an orthopedist in the near future for further intervention and refinement of treatment. - Vital Signs Vital signs: Temp Pulse Resp BP Pulse Ox 98.7 F 100 18 111/59 L 97 08/15/18 14:21 08/15/18 14:21 08/15/18 14:21 08/15/18 14:21 08/15/18 14:21 Discharge - Discharge Clinical Impression: Piriformis syndrome of left side Sciatica Qualifiers: Laterality: left Qualified Code(s): M54.32 - Sciatica, left side Condition: Stable Disposition: HOME, SELF-CARE Instructions: Myalagia (Muscle Pain) ([facility]), Sciatica ([facility]) Additional Instructions: As we discussed this could be 1 of 2 things a condition called piriformis syndrome and/or sciatica. At this point will treat you for both. I am putting you on a steroid taper to help with inflammation of its around the disc of the vertebrae. And/or a muscle relaxer in case it is the piriformis syndrome causing the spasm to go on. You should also start stretching conservatively at first and then increase the stretching that both sides of the body especially in the lower extremities. This will also help with the spasms. Massage may also be 1 of your solutions. If the pain continues you need to follow-up with your primary care doctor or orthopedist for MRI of the low back to make sure there is nothing else going on. Should you have any concerns or you have loss of urine or stool return to ER for a recheck. Also at work you may consider finding a chair that was more ergonomic and structurally sound. Prescriptions: Methocarbamol [Robaxin-750] 750 mg PO TID #21 tablet Prednisone 10 mg PO ASDIR PRN 6 Days #1 tab.ds.pk PRN Reason: Forms: Special Work Note, Return to Work Referrals: JOSÉ REED MD [ACTIVE STAFF] - Follow up as needed
== END 2018-08-15 15:35 | disposition home or self-care (01) ==
LOC: ER 14:13
DX: G57.02 Lesion of sciatic nerve, left lower limb (principal); M79.605 Pain in left leg; Z88.6 Allergy status to analgesic agent
CPT/HCPCS: 99283

== ENCOUNTER 2019-01-01 09:25 | Emergency (ER) | payer SELFPAY ==
[2019-01-01] MEDS ORDERED: IBUPROFEN 800 MG TABLET PO ONE (10:22)
--- NOTE | 2019-01-01 10:27 | ER Document Report ---
ED Extremity Problem, Lower - General Chief Complaint: Leg Pain Stated Complaint: THIGH PAIN Time Seen by Provider: 01/01/19 10:11 Primary Care Provider: [facility] [Provider Group] - Follow up as needed Mode of Arrival: Ambulatory Information source: Patient Notes: 28-year-old female presents to ED for complaint left lower extremity pain as well as left hip pain times a week. She states she fell out of bed a week ago and fell 3 feet onto the floor and has had pain and numbness since then. States she has a long history of knee problems and she was chilled she felt something pop when she fell out of bed and she is not improving with ibuprofen ice and warm packs. Patient is alert oriented respirations regular and unlabored speaking in full sentences walks with a even gait. She does deny any loss of control of bowel bladder, saddle anesthesia, loss of control or sensation to lower extremities. TRAVEL OUTSIDE OF THE [place] IN LAST 30 DAYS: No - HPI Patient complains to provider of: Injury, Pain Location: Hip, Thigh Occurred: Last week Where: Home - Fell out of bed Onset/Duration: Gradual, Persistent Quality of pain: Achy, Throbbing Severity: Moderate Pain Level: 4 Context: Fell Recent injury: Possibly - Out of bed Associated symptoms: [place] a pop, Painful ambulation Exacerbated by: Hanging down, Movement, Walking Relieved by: Elevation, Ice, Rest - Related Data Allergies/Adverse Reactions: hydrocodone [From Vicodin] Allergy (Intermediate, Verified 01/01/19 09:31) Hives tramadol Allergy (Intermediate, Verified 01/01/19 09:31) Hives Past Medical History - General Information source: Patient - Social History Smoking Status: Never Smoker Chew tobacco use (# tins/day): No Frequency of alcohol use: None Drug Abuse: None Lives with: Family Family History: Reviewed & Not Pertinent Patient has suicidal ideation: No Patient has homicidal ideation: No - Past Medical History Cardiac Medical History: Reports: None Pulmonary Medical History: Reports: None EENT Medical History: Reports: None Neurological Medical History: Reports: None Endocrine Medical History: Reports: None Renal/ Medical History: Reports: Hx Ovarian Cysts Malignancy Medical History: Reports: None GI Medical History: Reports: None Musculoskeletal Medical History: Reports Hx Musculoskeletal Deformity, Reports Hx Musculoskeletal Trauma Skin Medical History: Reports None Psychiatric Medical History: Reports: None Traumatic Medical History: Reports: Hx Fractures - Finger and left knee Infectious Medical History: Reports: None Past Surgical History: Reports: Hx Section - x2 - Immunizations Immunizations up to date: Yes Hx Diphtheria, Pertussis, Tetanus Vaccination: Yes - received in clinic during [facility] Review of Systems - Review of Systems Constitutional: No symptoms reported EENT: No symptoms reported Cardiovascular: No symptoms reported Respiratory: No symptoms reported Gastrointestinal: No symptoms reported Genitourinary: No symptoms reported Female Genitourinary: No symptoms reported Musculoskeletal: Joint pain, Muscle pain - Left hip and thigh, Muscle stiffness Skin: No symptoms reported Hematologic/Lymphatic: No symptoms reported Neurological/Psychological: No symptoms reported -: Yes All other systems reviewed and negative Physical Exam - Vital signs Vitals: Temp Pulse Resp BP Pulse Ox 98.3 F 78 16 119/56 L 96 01/01/19 09:33 01/01/19 09:33 01/01/19 09:33 01/01/19 09:33 01/01/19 09:33 Interpretation: Normal - General General appearance: Appears well, Alert - HEENT Head: Normocephalic, Atraumatic Eyes: Normal Pupils: PERRL - Respiratory Respiratory status: No respiratory distress Chest status: Nontender Breath sounds: Normal Chest palpation: Normal - Cardiovascular Rhythm: Regular Heart sounds: Normal auscultation Murmur: No - Abdominal Inspection: Normal Distension: No distension Bowel sounds: Normal Tenderness: Nontender Organomegaly: No organomegaly - Back Back: Normal, Nontender - Extremities General upper extremity: Normal inspection, Nontender, Normal color, Normal ROM, Normal temperature General lower extremity: Normal inspection, Normal color, Normal ROM, Normal temperature, Normal weight bearing. No: Jaciel's sign Hip: Tender, Pain with ROM. No: Abrasion, Deformity, Dislocation, Ecchymosis, Instability, Laceration, Unable to bear weight Thigh: Tender. No: Abrasion, Deformity, Dislocation, Ecchymosis, Instability, Laceration, Unable to bear weight - Neurological Neuro grossly intact: Yes Cognition: Normal Orientation: AAOx4 [place] Coma Scale Eye Opening: Spontaneous [place] Coma Scale Verbal: Oriented Jaimie Coma Scale Motor: Obeys Commands [place] Coma Scale Total: 15 Speech: Normal Motor strength normal: LUE, RUE, LLE, RLE Sensory: Normal - Psychological Associated symptoms: Normal affect, Normal mood - Skin Skin Temperature: Warm Skin Moisture: Dry Skin Color: Normal Course - Vital Signs Vital signs: Temp Pulse Resp BP Pulse Ox 98.4 F 73 16 100/64 100 01/01/19 11:43 01/01/19 11:43 01/01/19 11:43 01/01/19 11:43 01/01/19 11:43 - Diagnostic Test Radiology reviewed: Image reviewed, Reports reviewed Discharge - Discharge Clinical Impression: Leg pain, left Condition: Stable Disposition: HOME, SELF-CARE Additional Instructions: Leg Pain, Nonspecific your x-ray is negative for any problems at this time. You will need to follow-up with orthopedics for follow-up testing if your pain continues. We did not find an obvious cause for your leg pain. There's no sign of blood clot, infection, or other serious disease. Possible causes of vague leg pain include muscle or joint inflammation, disc disease in the lower back, pressure on the nerves in the back, or reduced blood flow through the arteries of the leg. Rest the leg. Pain can be eased with an antiinflammatory pain medicine such as ibuprofen. If the pain involves a small area, a heating pad might help. Call the doctor or return if the leg becomes swollen, weak, discolored, or increasingly painful, or if you develop any other significant change in your health. Ibuprofen Ibuprofen is an excellent, safe drug for pain control. In addition, it has potent antiinflammatory effects which are beneficial, especially in the treatment of injuries, arthritis, or tendonitis. It's best to take ibuprofen with food. Persons with ulcer disease or allergy to aspirin should notify their physician of this before taking ibuprofen. Take the medication exactly as prescribed. Don't take additional doses unless instructed to do so by your doctor. If you develop wheezing, shortness of breath, hives, faintness, stomach pain, vomiting, or dark black stools, return for re-evaluation at once. Ice & Elevation Apply ice packs frequently against the painful area. Many different schedules are recommended, such as "20 minutes on, 20 minutes off" or "one hour ice, two hours rest." If you need to work, you may need to go longer between ice treatments. You should plan to have the area ice packed AT LEAST one-fourth of the time. The ice should be applied over the wrap, tape, or splint, or over a layer of cloth -- not directly against the skin. Some ice bags have a built-in cloth and can be put directly on the skin. Your injured part should be elevated as much as possible over the next 48 hours. Try to keep the injury above the level of the heart. Avoid use of the injured area. Elevation and rest will decrease the swelling. FOLLOW-UP CARE: If you have been referred to a physician for follow-up care, call the physicians office for an appointment as you were instructed or within the next two days. If you experience worsening or a significant change in your symptoms, notify the physician immediately or return to the Emergency Department at any time for re-evaluation. Forms: Return to Work Referrals: [facility] ([facility]) [Provider Group] - Follow up as needed
--- NOTE | 2019-01-01 11:26 | RADIOLOGY REPORT (SQ) ---
EXAM DESCRIPTION: HIP LEFT AP/LATERAL COMPLETED DATE/TIME: 01/01/2019 10:40 am REASON FOR STUDY: Pain times a week since she fell out of bed COMPARISON: None. NUMBER OF VIEWS: Two views. TECHNIQUE: AP pelvis and additional frog-leg view of the left hip. LIMITATIONS: None. FINDINGS: MINERALIZATION: Normal. LEFT HIP: No fracture or dislocation. No worrisome bone lesions. RIGHT HIP: No fracture or dislocation. No worrisome bone lesions. PUBIS AND ISCHIUM: No fracture. PELVIS: No fracture. SACRUM: No fracture or dislocation. No worrisome bone lesions. LOWER LUMBAR SPINE: No fracture or dislocation. No worrisome bone lesions. No significant disc disea se. SOFT TISSUES: No findings. OTHER: Transitonal anatomy at the lumbosacral spine. IMPRESSION: 1. NEGATIVE STUDY OF THE LEFT HIP AND PELVIS. 2. Correlation suggested and additional imaging if clinically indicated with MRI Left hip to exclude an underlying occult fracture. TECHNICAL DOCUMENTATION: JOB ID: [id number] [employer]- All Rights Reserved Reading location - IP/workstation name: [email or web address]
[2019-01-01 11:46] VITALS: BP 100/64
== END 2019-01-01 12:05 | disposition home or self-care (01) ==
LOC: ER 09:25
DX: M79.18 Myalgia, other site (principal); M25.552 Pain in left hip; R20.0 Anesthesia of skin; W06.XXXA Fall from bed, initial encounter; Y92.003 Bedroom of unspecified non-institutional (private) residence as the place of occurrence of the external cause; Z88.5 Allergy status to narcotic agent
CPT/HCPCS: 99283

== ENCOUNTER 2019-01-14 10:38 | Emergency (ER) | payer SELFPAY ==
[2019-01-14] MEDS ORDERED: NORMAL SALINE 1000 ML 1,000 ML IV ONE ×2 (10:52→12:53)
[2019-01-14] MEDS ORDERED: ONDANSETRON HCL INJ/PF 4 MG/2 ML SDV IV ONE (10:52)
[2019-01-14] MEDS ORDERED: KETOROLAC TROMETHAMINE INJ/PF 30 MG/1 ML SDV IV ONE (10:52)
[2019-01-14] MEDS ORDERED: ACETAMINOPHEN 325 MG TABLET PO ONE (10:53)
--- NOTE | 2019-01-14 10:56 | ER Document Report ---
ED Flu Like - General Chief Complaint: Flu Symptoms Stated Complaint: BODYACHE Time Seen by Provider: 01/14/19 10:47 Mode of Arrival: Ambulatory Information source: Patient Notes: Presents with cough for the past 2 days with fever, body aches and nausea. Patient also reports sore throat. Patient has had recent sick contacts. Patient complains of generalized headache pain as well. TRAVEL OUTSIDE OF THE [place] IN LAST 30 DAYS: No - HPI Onset: Other - 2 days Timing/Duration: Worse Quality of pain: Achy Pain Level: 4 Associated symptoms: Body/muscle aches, Chest pain, Chills, Nonproductive cough, Fever, Headache, Nausea, Vomiting - After coughing, Shortness of breath. denies: Diarrhea Similar symptoms previously: No Recently seen / treated by doctor: No - Related Data Allergies/Adverse Reactions: hydrocodone [From Vicodin] Allergy (Intermediate, Verified 01/14/19 10:39) Hives tramadol Allergy (Intermediate, Verified 01/14/19 10:39) Hives Past Medical History - General Information source: Patient - Social History Smoking Status: Never Smoker Chew tobacco use (# tins/day): No Frequency of alcohol use: None Drug Abuse: None Occupation: call center Family History: Reviewed & Not Pertinent Patient has suicidal ideation: No Patient has homicidal ideation: No Renal/ Medical History: Reports: Hx Ovarian Cysts. Denies: Hx Peritoneal Dialysis Musculoskeletal Medical History: Reports Hx Musculoskeletal Deformity, Reports Hx Musculoskeletal Trauma Traumatic Medical History: Reports: Hx Fractures - Finger and left knee Past Surgical History: Reports: Hx Section - x2 - Immunizations Immunizations up to date: Yes Hx Diphtheria, Pertussis, Tetanus Vaccination: Yes - received in clinic during [facility] Review of Systems - Review of Systems Constitutional: Fever EENT: Nose congestion, Throat pain Cardiovascular: Chest pain Respiratory: Cough, Short of breath Gastrointestinal: Nausea, Vomiting. denies: Abdominal pain Genitourinary: No symptoms reported, Frequency. denies: Dysuria Female Genitourinary: No symptoms reported Musculoskeletal: Muscle pain Skin: No symptoms reported Hematologic/Lymphatic: No symptoms reported Neurological/Psychological: Headaches Physical Exam - Vital signs Vitals: Temp Pulse Resp BP Pulse Ox 99.5 F 111 H 40 H 113/68 100 01/14/19 10:42 01/14/19 10:42 01/14/19 10:42 01/14/19 10:42 01/14/19 10:42 - General General appearance: Appears well, Alert In distress: Mild - HEENT Head: Normocephalic, Atraumatic Eyes: Normal Conjunctiva: Normal Ears: Normal External canal: Normal Tympanic membrane: Normal Nasal: Clear rhinorrhea Mouth/Lips: Normal Mucous membranes: Normal Pharynx: Erythema. No: Exudate, Retropharyngeal abscess, Potential airway comprom. Neck: Normal, Supple. No: Lymphadenopathy, Meningismus - Respiratory Respiratory status: No respiratory distress Chest status: Pain with cough Breath sounds: Nonproductive cough. No: Rhonchi, Stridor, Wheezing Chest palpation: Normal - Cardiovascular Rhythm: Tachycardia Heart sounds: S1 appreciated, S2 appreciated Murmur: No - Abdominal Inspection: Normal Distension: No distension Tenderness: Nontender - Back Back: Normal, Nontender. No: CVA tenderness - Extremities General upper extremity: Normal inspection, Normal ROM General lower extremity: Normal inspection, Normal ROM - Neurological Neuro grossly intact: Yes Cognition: Normal [place] Coma Scale Eye Opening: Spontaneous Jaimie Coma Scale Verbal: Oriented Jaimie Coma Scale Motor: Obeys Commands [place] Coma Scale Total: 15 - Psychological Associated symptoms: Normal affect, Normal mood - Skin Skin Temperature: Warm Skin Moisture: Dry Skin Color: Normal Course - Re-evaluation Re-evalutation: 01/14/19 12:15 Patient sleeping, arouses easily to voice. Patient respirations even unlabored. Patient continues to complain of generalized body aches. 01/14/19 13:17 Patient encouraged to remove layers of blankets and coat that she is wearing over least pants. Discussed results of patient's diagnostic test. Patient without any leukocytosis. No pneumonia noted on chest x-ray and negative strep test and negative influenza test. Suspect patient likely has a viral illness although does complain of urinary frequency and does have some leukocyte esterase noted on UA. Culture will be obtained and short course of antibiotics will be prescribed. We will give an additional liter of IV fluids as well as first dose of antibiotics here, and reevaluate vital signs. 01/14/19 Patient feeling improvement after second liter of IV fluids. Patient without any leukocytosis or fever while here in the emergency department. Patient advised of elevated CK test and given a copy of her test results. Patient does admit to recently working out a lot. Patient encouraged to avoid exercise until she is seen her primary doctor and has been cleared to return to normal physical activities. Patient advised that she should have her CK test repeated this week. Urine culture is pending at this time as well as throat culture. Patient is agreeable with discharge plan of care at this time. - Vital Signs Vital signs: Temp Pulse Resp BP Pulse Ox 97.4 F 71 20 108/56 L 100 01/14/19 14:49 01/14/19 14:49 01/14/19 14:49 01/14/19 14:49 01/14/19 14:49 - Laboratory Result Diagrams: 01/14/19 11:09 01/14/19 12:25 Laboratory results interpreted by me: 01/14/19 01/14/19 01/14/19 11:09 11:09 12:25 RBC 5.48 H MCV 79 L RDW 15.7 H Monocytes % 13.8 H Creatine Kinase 706 H Urine Protein 30 H Urine Ketones TRACE H Urine Urobilinogen 4.0 H Ur Leukocyte Esterase TRACE H Urine Ascorbic Acid 40 H Labs- Entire Visit 01/14/19 01/14/19 01/14/19 11:09 11:09 11:09 WBC 5.3 RBC 5.48 H Hgb 14.8 Hct 43.1 MCV 79 L MCH 27.0 MCHC 34.4 RDW 15.7 H Plt Count 229 Seg Neutrophils % 67.8 Lymphocytes % 17.9 Monocytes % 13.8 H Eosinophils % 0.1 Basophils % 0.4 Absolute Neutrophils 3.6 Absolute Lymphocytes 1.0 Absolute Monocytes 0.7 Absolute Eosinophils 0.0 Absolute Basophils 0.0 Sodium Cancelled Potassium Cancelled Chloride Cancelled Carbon Dioxide Cancelled Anion Gap Cancelled BUN Cancelled Creatinine Cancelled Est GFR ( Amer) Cancelled Est GFR (Non-Af Amer) Cancelled Glucose Cancelled Calcium Cancelled Total Bilirubin Cancelled Direct Bilirubin Cancelled Neonat Total Bilirubin Cancelled Neonat Direct Bilirubin Cancelled Neonat Indirect Bili Cancelled AST Cancelled ALT Cancelled Alkaline Phosphatase Cancelled Creatine Kinase Total Protein Cancelled Albumin Cancelled Urine Color YELLOW Urine Appearance CLOUDY Urine pH 6.0 Ur Specific [place] 1.030 Urine Protein 30 H Urine Glucose (UA) NEGATIVE Urine Ketones TRACE H Urine Blood NEGATIVE Urine Nitrite NEGATIVE Urine Bilirubin NEGATIVE Urine Urobilinogen 4.0 H Ur Leukocyte Esterase TRACE H Urine WBC (Auto) 9 Urine RBC (Auto) 21 Squamous Epi Cells Auto 12 Amorphous Sediment Auto TRACE Urine Mucus (Auto) MANY Urine Ascorbic Acid 40 H Urine HCG, Qual NEGATIVE Influenza A (Rapid) Influenza B (Rapid) Group A Strep Rapid 01/14/19 01/14/19 01/14/19 11:09 11:09 12:25 WBC RBC Hgb Hct MCV MCH MCHC RDW Plt Count Seg Neutrophils % Lymphocytes % Monocytes % Eosinophils % Basophils % Absolute Neutrophils Absolute Lymphocytes Absolute Monocytes Absolute Eosinophils Absolute Basophils Sodium 138.2 Potassium 3.9 Chloride 107 Carbon Dioxide 22 Anion Gap 9 BUN 9 Creatinine 0.56 Est GFR ( Amer) > 60 Est GFR (Non-Af Amer) > 60 Glucose 82 Calcium 8.5 Total Bilirubin 0.2 Direct Bilirubin 0.2 Neonat Total Bilirubin Not Reportable Neonat Direct Bilirubin Not Reportable Neonat Indirect Bili Not Reportable AST 34 ALT 47 Alkaline Phosphatase 64 Creatine Kinase 706 H Total Protein 7.2 Albumin 3.8 Urine Color Urine Appearance Urine pH Ur Specific [place] Urine Protein Urine Glucose (UA) Urine Ketones Urine Blood Urine Nitrite Urine Bilirubin Urine Urobilinogen Ur Leukocyte Esterase Urine WBC (Auto) Urine RBC (Auto) Squamous Epi Cells Auto Amorphous Sediment Auto Urine Mucus (Auto) Urine Ascorbic Acid Urine HCG, Qual Influenza A (Rapid) NEGATIVE Influenza B (Rapid) NEGATIVE Group A Strep Rapid NEGATIVE - Diagnostic Test Radiology reviewed: Image reviewed, Reports reviewed Discharge - Discharge Clinical Impression: Viral illness UTI (urinary tract infection) Qualifiers: Urinary tract infection type: site unspecified Hematuria presence: without hematuria Qualified Code(s): N39.0 - Urinary tract infection, site not specified Nausea & vomiting Qualifiers: Vomiting type: unspecified Vomiting Intractability: non-intractable Qualified Code(s): R11.2 - Nausea with vomiting, unspecified Condition: Stable Disposition: HOME, SELF-CARE Additional Instructions: Return immediately for any new or worsening symptoms Followup with your primary care provider, call tomorrow to make a followup appointment Increase oral fluids and stay well-hydrated Follow-up with your primary doctor in 3-4 days to have your blood work rechec ked. Your CK test was elevated today. They will need to recheck this for you. Return immediately for any persistent vomiting, darkening of the urine, worsening cough, persistent fever or any new or worse symptoms. Prescriptions: Benzonatate [Tessalon Per[place] 100 mg Capsule] 100 mg PO Q8HP PRN #20 cap PRN Reason: Cephalexin Monohydrate [Keflex 500 mg Capsule] 500 mg PO BID 5 Days capsule Naproxen [Naprosyn 250 Nmg Tablet] 1 tab PO BID #14 tablet Ondansetron HCl [Zofran 4 mg Tablet] 1 - 2 tab PO Q6 PRN #15 tablet PRN Reason: Forms: Return to Work
[2019-01-14 11:26] LABS: ABSOLUTE MONOCYTES (AUTO) 0.7 10^3/uL (0.1-1.4); ABSOLUTE NEUT (AUTO) 3.6 10^3/uL (1.7-8.2); BASOPHILS % (AUTO) 0.4 % (0-2); EOSINOPHILS % (AUTO) 0.1 % (0-6); HEMATOCRIT 43.1 % (36.0-47.0); HEMOGLOBIN 14.8 g/dL (12.0-15.5); LYMPHOCYTES % (AUTO) 17.9 % (13-45); MEAN CORPUSCULAR HGB CONC 34.4 g/dL (32.0-36.0); MEAN CORPUSCULAR VOLUME 79 fl (80-97); MONOCYTES % (AUTO) 13.8 % (3-13); PLATELET COUNT 229 10^3/uL (150-450); RED BLOOD COUNT 5.48 10^6/uL (3.72-5.28); RED CELL DISTRIBUTION WIDTH 15.7 % (11.5-14.0); SEGMENTED NEUTROPHILS % (AUTO) 67.8 % (42-78); TOTAL CELLS COUNTED % (AUTO) 100 %; WHITE BLOOD COUNT 5.3 10^3/uL (4.0-10.5)
[2019-01-14 11:34] LABS: AMORPHOUS SEDIMENT,URINE TRACE /HPF; APPEARANCE,URINE CLOUDY; BILIRUBIN,URINE NEGATIVE (NEGATIVE); COLOR,URINE YELLOW; GLUCOSE, URINE NEGATIVE (NEGATIVE); KETONES,URINE TRACE mg/dL (NEGATIVE); LEUKOCYTE ESTERASE,URINE TRACE (NEGATIVE); NITRITE,URINE NEGATIVE (NEGATIVE); PROTEIN,URINE 30 mg/dL (NEGATIVE)
[2019-01-14 11:43] LABS: A TYPE INFLUENZA AG NEGATIVE (NEGATIVE); B INFLUENZA AG NEGATIVE (NEGATIVE)
--- NOTE | 2019-01-14 12:52 | RADIOLOGY REPORT (SQ) ---
EXAM DESCRIPTION: CHEST 2 VIEWS COMPLETED DATE/TIME: 01/14/2019 12:43 pm REASON FOR STUDY: cough COMPARISON: Two-view chest 11/06/2016 EXAM PARAMETERS: NUMBER OF VIEWS: two views TECHNIQUE: Digital Frontal and Lateral radiographic views of the chest acquired. RADIATION DOSE: NA LIMITATIONS: none FINDINGS: LUNGS AND PLEURA: No opacities, masses or pneumothorax. No pleural effusion. MEDIASTINUM AND HILAR STRUCTURES: No masses or contour abnormalities. HEART AND VASCULAR STRUCTURES: Heart normal size. No evidence for failure. BONES: No acute findings. HARDWARE: None in the chest. OTHER: No other significant finding. IMPRESSION: NO ACUTE RADIOGRAPHIC FINDING IN THE CHEST. TECHNICAL DOCUMENTATION: JOB ID: [id number] [employer]- All Rights Reserved Reading location - IP/workstation name: [email or web address]
[2019-01-14] MEDS ORDERED: CEFTRIAXONE 1 GM/D5W RTU 1 GM/50 ML RTUPB IV ONE (12:54)
[2019-01-14 12:57] LABS: ALANINE AMINOTRANSFERASE 47 U/L (9-52); ALBUMIN 3.8 g/dL (3.5-5.0); ALKALINE PHOSPHATASE 64 U/L (38-126); ANION GAP 9 (5-19); ASPARTATE AMINO TRANSFERASE 34 U/L (14-36); BILIRUBIN,DIRECT 0.2 mg/dL (0.0-0.4); BILIRUBIN,TOTAL 0.2 mg/dL (0.2-1.3); BLOOD UREA NITROGEN 9 mg/dL (7-20); CALCIUM 8.5 mg/dL (8.4-10.2); CARBON DIOXIDE 22 mmol/L (22-30); CHLORIDE 107 mmol/L (98-107); CREATINE KINASE 706 U/L (30-135); GLUCOSE 82 mg/dL (75-110); POTASSIUM 3.9 mmol/L (3.6-5.0); SODIUM 138.2 mmol/L (137-145); TOTAL PROTEIN 7.2 g/dL (6.3-8.2)
[2019-01-14 14:52] VITALS: BP 108/56
== END 2019-01-14 14:57 | disposition home or self-care (01) ==
LOC: ER 10:38
DX: N39.0 Urinary tract infection, site not specified (principal); B34.9 Viral infection, unspecified; R11.2 Nausea with vomiting, unspecified; M79.10 Myalgia, unspecified site; R50.9 Fever, unspecified; Z88.6 Allergy status to analgesic agent
CPT/HCPCS: 99283; 96361; 96375; 96365; 36415; 87070; 87086; 87880; 82550; 85025; 81025; 80053; 81001; 87804; 71046; J1885; J2405; J7030; J0696

== ENCOUNTER 2019-05-04 10:32 | Emergency (ER) | payer MEDICAID ==
--- NOTE | 2019-05-04 11:28 | ER Document Report ---
HPI - HPI Patient complains to provider of: right 2nd toe pain Time Seen by Provider: 05/04/19 11:21 Onset: Other - 4 days Onset/Duration: Persistent Quality of pain: Achy Pain Level: 2 Context: This 28-year-old female presents to the emergency department with complaints of pain to her second digit on her right foot for the past 4 days. She had a pedicure done 2 weeks ago. Approximate 4 days ago her toe started hurting. She reports she is taking Advil she is also soaked in Epson salts but the pain increases. Reports it is hurting to walk or move now. She reports the distal part of the toe is swollen. As fever vomiting reports she is had some diarrhea. Denies trauma to the foot. Associated Symptoms: None Exacerbated by: Movement, Walking Relieved by: Denies Similar symptoms previously: No Recently seen / treated by doctor: No - CONSTITUTIONAL Constitutional: DENIES: Fever, Chills - REPRODUCTIVE Reproductive: DENIES: : Past Medical History - General Information source: Patient - Social History Smoking Status: Never Smoker Chew tobacco use (# tins/day): No Frequency of alcohol use: None Drug Abuse: None Family History: Reviewed & Not Pertinent Patient has suicidal ideation: No Patient has homicidal ideation: No Renal/ Medical History: Reports: Hx Ovarian Cysts. Denies: Hx Peritoneal Dialysis Musculoskeletal Medical History: Reports Hx Musculoskeletal Deformity, Reports Hx Musculoskeletal Trauma Traumatic Medical History: Reports: Hx Fractures - Finger and left knee Past Surgical History: Reports: Hx Section - x2 - Immunizations Immunizations up to date: Yes Hx Diphtheria, Pertussis, Tetanus Vaccination: Yes - received in clinic during [facility] Vertical Provider Document - CONSTITUTIONAL Agree With Documented VS: Yes Exam Limitations: No Limitations General Appearance: WD/WN, No Apparent Distress - INFECTION CONTROL TRAVEL OUTSIDE OF THE [place] IN LAST 30 DAYS: No - HEENT HEENT: Atraumatic, Normocephalic - NECK Neck: Supple - RESPIRATORY Respiratory: No Respiratory Distress - CARDIOVASCULAR Cardiovascular: Regular Rate - MUSCULOSKELETAL/EXTREMETIES Musculoskeletal/Extremeties: MAEW, FROM, Tender - Patient complains of pain to the distal tip right second toe around the nail no erythema no obvious swelling no deformity, no paronychia, good cap refill good pedal pulse Course - Re-evaluation Re-evalutation: 05/04/19 11:26 This 28-year-old female presents to the emergency department with right foot second digit toe pain. Reports for the past 4 days. Reports she had a pedicure 2 weeks ago. No obvious signs of paronychia noted. Patient reports she has been soaking her foot and Epson salt taking Advil for the pain without relief of symptoms. Denies trauma. Will obtain x-ray to ensure no fracture. 05/04/19 11:50 Toe X-Ray 05/04/19 11:21 IMPRESSION: NEGATIVE STUDY OF THE RIGHT TOE. NO RADIOGRAPHIC EVIDENCE OF ACUTE INJURY. Negative x-ray. Patient instructed on this. Instructed Epson salt Advil. For continued pain follow-up with wastewater treatment engineer. She was also instructed on signs and symptoms of paronychia. - Vital Signs Vital signs: Temp Pulse Resp BP Pulse Ox 98.4 F 71 18 103/61 97 05/04/19 10:35 05/04/19 10:35 05/04/19 10:35 05/04/19 10:35 05/04/19 10:35 - Diagnostic Test Radiology reviewed: Image reviewed, Reports reviewed Discharge - Discharge Clinical Impression: Toe pain, right Condition: Stable Disposition: HOME, SELF-CARE Instructions: Epsom Salt Soaks ([facility]), Use of [id number] Ibuprofen ([facility]) Additional Instructions: *You have been evaluated for right foot, 2nd toe pain *epsom soaks, monitor your toe for signs of infection such as redness, swelling, warmth, pustule *Take motrin as indicated for pain *Follow up with a wastewater treatment engineer for evaluation within one week for continued pain *protect your toe, wear good supporting shoes *Return to ED for worsening condition, changes, needs Forms: Return to Work
--- NOTE | 2019-05-04 11:46 | RADIOLOGY REPORT (SQ) ---
EXAM DESCRIPTION: TOE RIGHT COMPLETED DATE/TIME: 05/04/2019 11:38 am REASON FOR STUDY: pain COMPARISON: None. NUMBER OF VIEWS: Three views. TECHNIQUE: AP, lateral, and oblique images acquired of the right second toe. LIMITATIONS: None. FINDINGS: MINERALIZATION: Normal. BONES: No acute fracture or dislocation. No worrisome bone lesions. JOINTS: No effusions. SOFT TISSUES: No soft tissue swelling. No foreign body. OTHER: No other significant finding. IMPRESSION: NEGATIVE STUDY OF THE RIGHT TOE. NO RADIOGRAPHIC EVIDENCE OF ACUTE INJURY. COMMENT: SITE OF TRAUMA/COMPLAINT MARKED/STAMP COMPLETED: Yes TECHNICAL DOCUMENTATION: JOB ID: [id number] [employer]- All Rights Reserved Reading location - IP/workstation name: [email or web address]
[2019-05-04 11:59] VITALS: BP 105/63
== END 2019-05-04 12:00 | disposition home or self-care (01) ==
LOC: ER 10:32
DX: M79.674 Pain in right toe(s) (principal); R19.7 Diarrhea, unspecified
CPT/HCPCS: 99283

== ENCOUNTER 2019-09-09 13:54 | Emergency (ER) | payer MEDICAID ==
[2019-09-09 14:31] VITALS: BP 115/63
[2019-09-09] MEDS ORDERED: ACETAMINOPHEN 325 MG TABLET PO ONE (14:36)
--- NOTE | 2019-09-09 14:40 | ER Document Report ---
ED Medical Screen (RME) - General Chief Complaint: Vag Bleeding, +preg <12wks Stated Complaint: VAGINAL PAIN/CRAMPING Time Seen by Provider: 09/09/19 14:33 Primary Care Provider: STPEH YBARRA DO [Primary Care Provider] - Follow up as needed Mode of Arrival: Ambulatory Information source: Patient Notes: 28-year-old female G4, P2 presents emergency department with complaints of abdominal pain radiating to her left side. Reports vaginal bleeding this morning. Reports last menstrual period July 07 has not had any care. She reports she has had 1+ test 1- home test. Denies fever vomiting diarrhea. Denies pain with void. I have greeted and performed a rapid initial assessment of this patient. A comprehensive ED assessment and evaluation of the patient, analysis of test results and completion of the medical decision making process will be conducted by additional ED providers. Dictation of this chart was performed using voice recognition software; therefore, there may be some unintended grammatical errors. TRAVEL OUTSIDE OF THE [place] IN LAST 30 DAYS: No - Related Data Allergies/Adverse Reactions: hydrocodone [From Vicodin] Allergy (Intermediate, Verified 09/09/19 14:33) Hives tramadol Allergy (Intermediate, Verified 09/09/19 14:33) Hives Past Medical History - Social History Chew tobacco use (# tins/day): No Frequency of alcohol use: Occasional Drug Abuse: None Renal/ Medical History: Reports: Hx Ovarian Cysts. Denies: Hx Peritoneal Dialysis Musculoskeltal Medical History: Reports Hx Musculoskeletal Deformity, Reports Hx Musculoskeletal Trauma Traumatic Medical History: Reports: Hx Fractures - Finger and left knee Past Surgical History: Reports: Hx Section - x2 - Immunizations Immunizations up to date: Yes Hx Diphtheria, Pertussis, Tetanus Vaccination: Yes - received in clinic during [facility] Physical Exam - Vital signs Vitals: Temp Pulse Resp BP Pulse Ox 98.8 F 77 22 H 115/63 99 09/09/19 14:30 09/09/19 14:30 09/09/19 14:30 09/09/19 14:30 09/09/19 14:30 Course - Vital Signs Vital signs: Temp Pulse Resp BP Pulse Ox 98.8 F 77 22 H 115/63 99 09/09/19 14:33 09/09/19 14:33 09/09/19 14:33 09/09/19 14:33 09/09/19 14:33 Doctor's Discharge - Discharge Referrals: STEPH YBARRA I, DO [Primary Care Provider] - Follow up as needed
--- NOTE | 2019-09-09 15:32 | RADIOLOGY REPORT (SQ) ---
EXAM DESCRIPTION: U/S OB TRANSVAGINAL W/O DOP COMPLETED DATE/TIME: 09/09/2019 3:12 pm REASON FOR STUDY: abd.pain , lmp 07/07 COMPARISON: None. TECHNIQUE: Transvaginal static and realtime grayscale images acquired of the pelvis. Additional je cted spectral and color Doppler images recorded. All images stored on PACs. CLINICAL AGE: 9 week 1 day BHCG: Pending. LIMITATIONS: None. FINDINGS: UTERUS: No visualized intrauterine . RIGHT ADNEXA: Normal ovary with normal vascular flow. No adnexal free fluid. 3 cm relatively simple appearing cyst. LEFT ADNEXA: Normal ovary with normal vascular flow. No adnexal free fluid. 1.6 cm simple appearing paraovarian cyst. FREE FLUID: None. OTHER: No other significant finding. IMPRESSION: NO VISUALIZED INTRA- OR EXTRAUTERINE . bHCG LEVEL NOT AVAILABLE FOR CORRELATION WITH US FINDINGS. ECTOPIC CANNOT BE EXCLUDED. FOLLOW-UP ULTRASOUND AND SERIAL BHCG LEVELS STRONGLY RECOMMENDED TO ACCURATELY ASSESS STATU S. TECHNICAL DOCUMENTATION: JOB ID: [id number] [employer]- All Rights Reserved Reading location - IP/workstation name: [email or web address]
[2019-09-09 16:01] LABS: ABSOLUTE EOSINOPHILS # (AUTO) 0.1 10^3/uL (0.0-0.6); ABSOLUTE MONOCYTES (AUTO) 0.5 10^3/uL (0.1-1.4); ABSOLUTE NEUT (AUTO) 3.9 10^3/uL (1.7-8.2); BASOPHILS % (AUTO) 0.5 % (0-2); EOSINOPHILS % (AUTO) 0.8 % (0-6); HEMATOCRIT 41.6 % (36.0-47.0); HEMOGLOBIN 14.1 g/dL (12.0-15.5); LYMPHOCYTES % (AUTO) 31.1 % (13-45); MEAN CORPUSCULAR HGB CONC 33.9 g/dL (32.0-36.0); MEAN CORPUSCULAR VOLUME 80 fl (80-97); MONOCYTES % (AUTO) 7.8 % (3-13); PLATELET COUNT 260 10^3/uL (150-450); RED BLOOD COUNT 5.23 10^6/uL (3.72-5.28); RED CELL DISTRIBUTION WIDTH 15.5 % (11.5-14.0); SEGMENTED NEUTROPHILS % (AUTO) 59.8 % (42-78); TOTAL CELLS COUNTED % (AUTO) 100 %; WHITE BLOOD COUNT 6.5 10^3/uL (4.0-10.5)
[2019-09-09 16:17] LABS: ALBUMIN 4.6 g/dL (3.5-5.0); ALKALINE PHOSPHATASE 63 U/L (38-126); ANION GAP 13 (5-19); ASPARTATE AMINO TRANSFERASE 25 U/L (14-36); BILIRUBIN,DIRECT 0.2 mg/dL (0.0-0.4); BILIRUBIN,TOTAL 0.3 mg/dL (0.2-1.3); BLOOD UREA NITROGEN 6 mg/dL (7-20); CALCIUM 9.8 mg/dL (8.4-10.2); CARBON DIOXIDE 24 mmol/L (22-30); CHLORIDE 103 mmol/L (98-107); GLUCOSE 86 mg/dL (75-110); POTASSIUM 4.5 mmol/L (3.6-5.0); TOTAL PROTEIN 8.4 g/dL (6.3-8.2)
--- NOTE | 2019-09-09 19:09 | ER Document Report ---
HPI - HPI Patient complains to provider of: Vaginal bleeding Time Seen by Provider: 09/09/19 14:33 Onset: This afternoon Onset/Duration: Waxing and waning Quality of pain: Cramping Pain Level: 4 Context: Patient reports being having a positive abel negative test at home. Patient states she developed vaginal bleeding today and is concerned about miscarriage. Patient states she is G4, P2. Last menstrual period was in June. Patient also states that she does have an Implanon as contraceptive Associated Symptoms: Other - Abdominal cramping, vaginal bleeding Exacerbated by: Denies Relieved by: Denies Similar symptoms previously: No Recently seen / treated by doctor: No - ROS ROS below otherwise negative: Yes Systems Reviewed and Negative: Yes All other systems reviewed and negative - GASTROINTESTINAL Gastrointestinal: REPORTS: Abdominal Pain. DENIES: Nausea, Patient vomiting - REPRODUCTIVE LMP: 07/07/19 Reproductive: REPORTS: :, Abnormal bleeding / discharge - MUSCULOSKELETAL Musculoskeletal: REPORTS: Back Pain. DENIES: Neck Pain - DERM Skin Color: Normal Skin Problems: None Past Medical History - General Information source: Patient - Social History Smoking Status: Never Smoker Chew tobacco use (# tins/day): No Frequency of alcohol use: Occasional Drug Abuse: None Occupation: Call center Lives with: Family Family History: Reviewed & Not Pertinent Patient has suicidal ideation: No Patient has homicidal ideation: No Renal/ Medical History: Reports: Hx Ovarian Cysts. Denies: Hx Peritoneal Dialysis Musculoskeletal Medical History: Reports Hx Musculoskeletal Deformity, Reports Hx Musculoskeletal Trauma Traumatic Medical History: Reports: Hx Fractures - Finger and left knee Past Surgical History: Reports: Hx Section - x2 - Immunizations Immunizations up to date: Yes Hx Diphtheria, Pertussis, Tetanus Vaccination: Yes - received in clinic during [facility] Vertical Provider Document - CONSTITUTIONAL Agree With Documented VS: Yes Exam Limitations: No Limitations General Appearance: WD/WN, No Apparent Distress - INFECTION CONTROL TRAVEL OUTSIDE OF THE [place] IN LAST 30 DAYS: No - HEENT HEENT: Atraumatic, Normocephalic - NECK Neck: Normal Inspection, Supple. negative: Lymphadenopathy-Left, Lymphadenopathy-Right - RESPIRATORY Respiratory: Breath Sounds Normal, No Respiratory Distress - CARDIOVASCULAR Cardiovascular: Regular Rate, Regular Rhythm, No Murmur - GI/ABDOMEN Gastrointestinal: Abdomen Soft, Abdomen Tender - pelvic - BACK Back: Normal Inspection - MUSCULOSKELETAL/EXTREMETIES Musculoskeletal/Extremeties: MAEW, FROM, Non-Tender - NEURO Level of Consciousness: Awake, Alert, Appropriate Motor/Sensory: No Motor Deficit - DERM Integumentary: Warm, Dry Course - Re-evaluation Re-evalutation: 09/09/19 19:00 Patient negative hCG and no acute findings on ultrasound. Lab work otherwise benign. Patient denies any urinary symptoms. Patient denies any concerns about STI. Offered patient pelvic examination, patient declines at this time. Isidro t does have Implanon control. Patient advised that she should follow-up with her [employer] for recheck if she is having irregular vaginal bleeding. 09/09/19 19:08 Nurse states that patient left prior to receiving discharge paperwork - Vital Signs Vital signs: Temp Pulse Resp BP Pulse Ox 98.8 F 77 22 H 115/63 99 09/09/19 14:33 09/09/19 14:33 09/09/19 14:33 09/09/19 14:33 09/09/19 14:33 - Laboratory Result Diagrams: 09/09/19 15:35 09/09/19 15:35 Laboratory results interpreted by me: 09/09/19 09/09/19 15:35 15:35 RDW 15.5 H BUN 6 L Creatinine 0.51 L Total Protein 8.4 H 09/09/19 21:23 Labs- Entire Visit 09/09/19 09/09/19 09/09/19 15:35 15:35 15:35 WBC 6.5 RBC 5.23 Hgb 14.1 Hct 41.6 MCV 80 MCH 27.0 MCHC 33.9 RDW 15.5 H Plt Count 260 Lymph % (Auto) 31.1 [place] % (Auto) 7.8 Eos % (Auto) 0.8 Baso % (Auto) 0.5 Absolute Neuts (auto) 3.9 Absolute Lymphs (auto) 2.0 Absolute Monos (auto) 0.5 Absolute Eos (auto) 0.1 Absolute Basos (auto) 0.0 Seg Neutrophils % 59.8 Sodium 139.8 Potassium 4.5 Chloride 103 Carbon Dioxide 24 Anion Gap 13 BUN 6 L Creatinine 0.51 L Est GFR ( Amer) > 60 Est GFR (MDRD) Non-Af > 60 Glucose 86 Calcium 9.8 Total Bilirubin 0.3 Direct Bilirubin 0.2 Neonat Total Bilirubin Not Reportable Neonat Direct Bilirubin Not Reportable Neonat Indirect Bili Not Reportable AST 25 ALT 18 Alkaline Phosphatase 63 Total Protein 8.4 H Albumin 4.6 Beta HCG, Quant < 2.39 Total Beta HCG NEGATIVE Blood Type O POSITIVE Rhogam Indicated RHOGAM NOT INDICATED - Diagnostic Test Radiology reviewed: Reports reviewed Discharge - Discharge Clinical Impression: Vagina bleeding Condition: Stable Disposition: HOME, SELF-CARE Instructions: Vaginal Bleeding ([facility]) Additional Instructions: Return immediately for any new or worsening symptoms Followup with your primary care provider, call tomorrow to make a followup appointment Referrals: STEPH YBARRA I, DO [Primary Care Provider] - Follow up as needed
== END 2019-09-09 18:55 | disposition home or self-care (01) ==
LOC: ER 13:54
DX: Z32.02 Encounter for pregnancy test, result negative (principal); N93.9 Abnormal uterine and vaginal bleeding, unspecified; R10.9 Unspecified abdominal pain; M54.9 Dorsalgia, unspecified
CPT/HCPCS: 86900; 86901; 36415; 84702; 85025; 80053; 76817; J3490; 99284

== ENCOUNTER 2019-12-05 11:11 | Emergency (ER) | payer MEDICAID ==
--- NOTE | 2019-12-05 12:03 | ER Document Report ---
ED Medical Screen (RME) - General Chief Complaint: Headache Stated Complaint: HEADACHE,NAUSEA,VOMITING Time Seen by Provider: 12/05/19 11:58 Primary Care Provider: STEPH YBARRA DO [Primary Care Provider] - Follow up as needed Mode of Arrival: Ambulatory Information source: Patient Notes: 29-year-old female presented to ED for complaint of nausea vomiting and headache x2 hours. She states she has been getting headaches off and on for the last week. She states she does have an Implanon implanted but it is about 4 years old. She states she has tried to get the health department to replace it but they have not. She states she is using abstinence is her control right now. She is alert oriented respirations regular nonlabored speaking in full sentences. I have greeted and performed a rapid initial assessment of this patient. A comprehensive ED assessment and evaluation of the patient, analysis of test results and completion of medical decision making process will be conducted by an additional ED providers. TRAVEL OUTSIDE OF THE [place] IN LAST 30 DAYS: No - Related Data Allergies/Adverse Reactions: hydrocodone [From Vicodin] Allergy (Intermediate, Verified 09/09/19 14:33) Hives tramadol Allergy (Intermediate, Verified 09/09/19 14:33) Hives Past Medical History Renal/ Medical History: Reports: Hx Ovarian Cysts. Denies: Hx Peritoneal Dialysis Musculoskeltal Medical History: Reports Hx Musculoskeletal Deformity, Reports Hx Musculoskeletal Trauma Traumatic Medical History: Reports: Hx Fractures - Finger and left knee Past Surgical History: Reports: Hx Section - x2 - Immunizations Immunizations up to date: Yes Hx Diphtheria, Pertussis, Tetanus Vaccination: Yes - received in clinic during [facility] Physical Exam - Vital signs Vitals: Temp Pulse Resp BP Pulse Ox 98.6 F 76 16 115/64 100 12/05/19 11:22 12/05/19 11:22 12/05/19 11:22 12/05/19 11:22 12/05/19 11:22 Course - Vital Signs Vital signs: Temp Pulse Resp BP Pulse Ox 98.6 F 76 16 115/64 100 12/05/19 11:22 12/05/19 11:22 12/05/19 11:22 12/05/19 11:22 12/05/19 11:22 Doctor's Discharge - Discharge Referrals: AMADA,STEPH I, DO [Primary Care Provider] - Follow up as needed
[2019-12-05 12:41] LABS: APPEARANCE,URINE SLIGHTLY-CLOUDY; BILIRUBIN,URINE NEGATIVE (NEGATIVE); COLOR,URINE YELLOW; GLUCOSE, URINE NEGATIVE (NEGATIVE); KETONES,URINE 80 mg/dL (NEGATIVE); PROTEIN,URINE 30 mg/dL (NEGATIVE); URINE SPECIFIC GRAVITY 1.029
[2019-12-05 12:53] LABS: BACTERIA,URINE TRACE /HPF
[2019-12-05 13:04] LABS: ABSOLUTE LYMPHOCYTES (AUTO) 1.8 10^3/uL (0.5-4.7); ABSOLUTE MONOCYTES (AUTO) 0.5 10^3/uL (0.1-1.4); ABSOLUTE NEUT (AUTO) 5.2 10^3/uL (1.7-8.2); BASOPHILS % (AUTO) 0.3 % (0-2); EOSINOPHILS % (AUTO) 0.5 % (0-6); HEMOGLOBIN 13.7 g/dL (12.0-15.5); LYMPHOCYTES % (AUTO) 23.6 % (13-45); MEAN CORPUSCULAR HEMOGLOBIN 27.1 pg (27.0-33.4); MEAN CORPUSCULAR HGB CONC 34.4 g/dL (32.0-36.0); MEAN CORPUSCULAR VOLUME 79 fl (80-97); PLATELET COUNT 247 10^3/uL (150-450); RED BLOOD COUNT 5.07 10^6/uL (3.72-5.28); SEGMENTED NEUTROPHILS % (AUTO) 68.6 % (42-78); TOTAL CELLS COUNTED % (AUTO) 100 %; WHITE BLOOD COUNT 7.6 10^3/uL (4.0-10.5)
[2019-12-05 13:09] LABS: URINE AMPHETAMINES SCREEN NEGATIVE; URINE BARBITURATES SCREEN NEGATIVE; URINE BENZODIAZEPINES SCREEN NEGATIVE; URINE COCAINE SCREEN NEGATIVE; URINE METHADONE SCREEN NEGATIVE; URINE PHENCYCLIDINE SCREEN NEGATIVE
[2019-12-05 13:16] LABS: URINE MARIJUANA (THC) SCREEN UNCONFIRMED POSITIVE
[2019-12-05 13:28] LABS: ALBUMIN 4.5 g/dL (3.5-5.0); ALKALINE PHOSPHATASE 68 U/L (38-126); ANION GAP 15 (5-19); ASPARTATE AMINO TRANSFERASE 23 U/L (14-36); BILIRUBIN,DIRECT 0.3 mg/dL (0.0-0.4); BILIRUBIN,TOTAL 0.7 mg/dL (0.2-1.3); BLOOD UREA NITROGEN 12 mg/dL (7-20); CALCIUM 8.9 mg/dL (8.4-10.2); CARBON DIOXIDE 23 mmol/L (22-30); CHLORIDE 101 mmol/L (98-107); GLUCOSE 74 mg/dL (75-110); POTASSIUM 3.7 mmol/L (3.6-5.0); TOTAL PROTEIN 8.2 g/dL (6.3-8.2)
[2019-12-05] MEDS ORDERED: NORMAL SALINE 1000 ML 1,000 ML IV ONE (13:29)
--- NOTE | 2019-12-05 13:33 | ER Document Report ---
ED General - General Chief Complaint: Headache Stated Complaint: HEADACHE,NAUSEA,VOMITING Time Seen by Provider: 12/05/19 11:58 Primary Care Provider: STEPH YBARRA DO [Primary Care Provider] - Follow up as needed Mode of Arrival: Ambulatory TRAVEL OUTSIDE OF THE [place] IN LAST 30 DAYS: No - HPI Notes: Patient is a 29-year-old female with no significant past medical history presents complaining of having nasal congestion/discharge, sinus pressure, sinus headaches, cough for the past 2 weeks. Patient states that her headaches will vary in severity and is associated with nausea, vomiting, and light sensitivity. This is not the worst take of her life and did not start as a thunderclap. She has had decreased p.o. intake today. She is urinating normally and having normal bowel movements. Current headache began earlier today. Denies any fe yandel, neck pain, sore throat, chest pain, palpitations, syncope, shortness of breath, wheeze, dyspnea, abdominal pain, diarrhea, urinary retention, dysuria, hematuria, or rash. - Related Data Allergies/Adverse Reactions: hydrocodone [From Vicodin] Allergy (Intermediate, Verified 09/09/19 14:33) Hives tramadol Allergy (Intermediate, Verified 09/09/19 14:33) Hives Home Medications: implanon Past Medical History - General Information source: Patient - Social History Smoking Status: Never Smoker Chew tobacco use (# tins/day): No Frequency of alcohol use: Occasional Drug Abuse: None Family History: Reviewed & Not Pertinent Patient has suicidal ideation: No Patient has homicidal ideation: No Renal/ Medical History: Reports: Hx Ovarian Cysts. Denies: Hx Peritoneal Dialysis Musculoskeletal Medical History: Reports Hx Musculoskeletal Deformity, Reports Hx Musculoskeletal Trauma Traumatic Medical History: Reports: Hx Fractures - Finger and left knee Past Surgical History: Reports: Hx Section - x2 - Immunizations Immunizations up to date: Yes Hx Diphtheria, Pertussis, Tetanus Vaccination: Yes - received in clinic during [facility] Review of Systems - Review of Systems -: Yes All other systems reviewed and negative Physical Exam - Vital signs Vitals: Temp Pulse Resp BP Pulse Ox 98.6 F 76 16 115/64 100 12/05/19 11:22 12/05/19 11:22 12/05/19 11:22 12/05/19 11:22 12/05/19 11:22 - Notes Notes: PHYSICAL EXAMINATION: GENERAL: Well-appearing, well-nourished and in no acute distress. A&Ox4. Ans wers questions appropriately. HEAD: Atraumatic, normocephalic. Non-tender. EYES: Pupils equal round and reactive to light, extraocular movements intact, sclera anicteric, conjunctiva are normal. No nystagmus. vis dominique intact. ENT: EAC clear b/l. TM's intact b/l without erythema, fluid, or perforation. Nares patent and with clear discharge. oropharynx clear without exudates. No tonsilar hypertrophy or erythema. Moist mucous membranes. No sinus tenderness. NECK: Normal range of motion, supple without lymphadenopathy. No rigidity/meningismus. No midline tenderness. LUNGS: Breath sounds clear to auscultation bilaterally and equal. No wheezes rales or rhonchi. HEART: Regular rate and rhythm without murmurs, rubs, gallops. ABDOMEN: Soft, nontender, nondistended abdomen. No guarding, no rebound. Normal bowel sounds present. No CVA tenderness bilaterally. Musculoskeletal: Ext b/l: FROM to passive/active. Strength 5+/5. Extremities: No cyanosis, clubbing, or edema b/l. Peripheral pulses 2+. Capillary refill less than 2 seconds. NEUROLOGICAL: NIH 0. GCS 15. Cranial nerves grossly intact. Normal speech, normal gait. Normal sensory, motor exams. PSYCH: Normal mood, normal affect. SKIN: Warm, Dry, normal turgor, no rashes or lesions noted. Course - Re-evaluation Re-evalutation: 12/05/19 15:05 Patient is an afebrile, well-hydrated, 29-year-old female who presents to the ED with a headache, suspect secondary to her URI/sinusitis. Vitals are acceptable without any significant tachycardia, tachypnea, or hypoxia. PE is otherwise unremarkable for any focal neurological deficits. NIH 0, GCS 15, cranial nerves grossly intact. Labs unremarkable. CXR unremarkable. No other labs or imaging warranted at this time based on H&P. Patient was given Toradol, Compazine, and benadryl which has resolved her headache. Patient states that she is feeling much better and would like to go home. She is nontoxic-appearing and is tolerating p.o. without any difficulties. Low suspicion for any acute glaucoma, temporal arteritis, meningitis, intracranial hemorrhage, ischemic stroke, or fracture at this time. Patient is aware that this condition can change from initial presentation and that she needs to monitor symptoms closely for any acute changes. I will send her home with a pocket rx for her sinuses to start with worsening symptoms x2-3 days. Recheck with your PCM/neurologist in 3-5 days. Return to the ED with any worsening/concerning symptoms otherwise as reviewed in discharge. Patient is in agreement. - Vital Signs Vital signs: Temp Pulse Resp BP Pulse Ox 98.6 F 76 16 115/64 100 12/05/19 11:22 12/05/19 11:22 12/05/19 11:22 12/05/19 11:22 12/05/19 11:22 - Laboratory Result Diagrams: 12/05/19 12:15 12/05/19 12:15 Laboratory results interpreted by me: 12/05/19 12/05/19 12/05/19 12:15 12:15 12:15 MCV 79 L RDW 16.0 H Creatinine 0.45 L Glucose 74 L Urine Protein 30 H Urine Ketones 80 H Urine Urobilinogen 4.0 H Discharge - Discharge Clinical Impression: Cough, Sinus pain, Acute URI Condition: Stable Disposition: HOME, SELF-CARE Instructions: Upper Respiratory Illness ([facility]), Headache ([facility]) Additional Instructions: Maintain adequate fluid intake tylenol/ibuprofen as needed alternating every 3 hours for fever/body ache over the counter cold medication as needed for symptoms Humidified air may help Wash your hands regularly Wear a mask when coughing F/u: with your PCM in 3-5 days for a recheck Return to the ED with any fever, altered mental status/behavior, chest pain, palpitations, syncope, headache, neck pain/stiffness, shortness of breath, chest pains, wheezing, drooling, trouble swallowing/breathing, abdominal pain, n/v/d, rash, or worsening/concerning symptoms otherwise. Prescriptions: Amoxicillin/Potassium Clav [Augmentin 875-125 Tablet] 1 tab PO BID #20 tab Forms: Return to Work Referrals: STEPH YBARRA I, [Primary Care Provider] - Follow up as needed
--- NOTE | 2019-12-05 14:02 | RADIOLOGY REPORT (SQ) ---
EXAM DESCRIPTION: CHEST SINGLE VIEW COMPLETED DATE/TIME: 12/05/2019 1:47 pm REASON FOR STUDY: cough COMPARISON: 01/14/2019 EXAM PARAMETERS: NUMBER OF VIEWS: One view. TECHNIQUE: Single frontal radiographic view of the chest acquired. RADIATION DOSE: NA LIMITATIONS: None. FINDINGS: LUNGS AND PLEURA: No opacities, masses or pneumothorax. No pleural effusion. MEDIASTINUM AND HILAR STRUCTURES: No masses. Contour normal. HEART AND VASCULAR STRUCTURES: Heart normal in size. Normal vasculature. BONES: No acute findings. HARDWARE: None in the chest. OTHER: No other significant finding. IMPRESSION: NO ACUTE RADIOGRAPHIC FINDING IN THE CHEST. TECHNICAL DOCUMENTATION: JOB ID: [id number] 2010 [employer]- All Rights Reserved Reading location - IP/workstation name: [email or web address]
[2019-12-05] MEDS ORDERED: KETOROLAC TROMETHAMINE INJ/PF 30 MG/1 ML SDV IV ONE (14:28)
[2019-12-05] MEDS ORDERED: DIPHENHYDRAMINE HCL 50 MG/ML VIAL IV ONE (14:28)
[2019-12-05] MEDS ORDERED: PROCHLORPERAZINE EDISYLATE INJ 10 MG/2 ML VIAL IV ONE (14:28)
[2019-12-05 15:44] VITALS: BP 104/63
== END 2019-12-05 15:44 | disposition home or self-care (01) ==
LOC: ER 11:11
DX: J06.9 Acute upper respiratory infection, unspecified (principal); R51 Headache; R11.2 Nausea with vomiting, unspecified; R09.81 Nasal congestion; Z88.6 Allergy status to analgesic agent
CPT/HCPCS: 99283; 96361; 96374; 96375; 36415; 83690; 84703; 85025; 80053; 81001; 80307; 71045; J1200; J1885; J0780; J7030

== ENCOUNTER 2020-05-07 07:04 | Emergency (ER) | payer MEDICAID ==
[2020-05-07] MEDS ORDERED: KETOROLAC TROMETHAMINE INJ/PF 30 MG/1 ML SDV IV ONE (07:46)
--- NOTE | 2020-05-07 08:25 | ER Document Report ---
ED GI/ - General Chief Complaint: Flank Pain Stated Complaint: FLANK PAIN,BACK PAIN Time Seen by Provider: 05/07/20 08:11 Primary Care Provider: STEPH YBARRA DO [Primary Care Provider] - Follow up as needed Mode of Arrival: Ambulatory Information source: Patient Notes: 29-year-old female patient with chief complaint of dysuria x2 days. Patient reports no fever, chills, nausea, vomiting. She states this morning she started having severe left flank pain that now radiates around to her right back. She denies any abdominal pain. She does report 2 episodes of diarrhea this morning. She has never had a kidney stone. Her last menstrual cycle was on 04/25/2020. TRAVEL OUTSIDE OF THE [place] IN LAST 30 DAYS: No - Related Data Allergies/Adverse Reactions: hydrocodone [From Vicodin] Allergy (Intermediate, Verified 05/07/20 07:34) Hives tramadol Allergy (Intermediate, Verified 05/07/20 07:34) Hives Past Medical History - General Information source: Patient - Social History Smoking Status: Never Smoker Chew tobacco use (# tins/day): No Frequency of alcohol use: Occasional Drug Abuse: None Family History: Reviewed & Not Pertinent Patient has homicidal ideation: No Renal/ Medical History: Reports: Hx Ovarian Cysts. Denies: Hx Peritoneal Dialysis Musculoskeletal Medical History: Reports Hx Musculoskeletal Deformity, Reports Hx Musculoskeletal Trauma Traumatic Medical History: Reports: Hx Fractures - Finger and left knee Past Surgical History: Reports: Hx Section - x2 - Immunizations Immunizations up to date: Yes Hx Diphtheria, Pertussis, Tetanus Vaccination: Yes - received in clinic during [facility] Review of Systems - Review of Systems Constitutional: No symptoms reported EENT: No symptoms reported Cardiovascular: No symptoms reported Respiratory: No symptoms reported Gastrointestinal: Diarrhea Genitourinary: Burning, Frequency, Flank pain, Urgency Female Genitourinary: No symptoms reported Musculoskeletal: No symptoms reported Skin: No symptoms reported Hematologic/Lymphatic: No symptoms reported Neurological/Psychological: No symptoms reported Physical Exam - Vital signs Vitals: Temp Pulse Resp BP Pulse Ox 98.5 F 71 16 104/70 98 05/07/20 07:07 05/07/20 07:07 05/07/20 07:07 05/07/20 07:07 05/07/20 07:07 - Notes Notes: PHYSICAL EXAMINATION: GENERAL: Well-appearing, well-nourished and in no acute distress. HEAD: Atraumatic, normocephalic. EYES: Pupils equal round and reactive to light, extraocular movements intact, conjunctiva are normal. ENT: Nares patent, oropharynx clear without exudates. Moist mucous membranes. NECK: Normal range of motion, supple without lymphadenopathy LUNGS: Breath sounds clear to auscultation bilaterally and equal. No wheezes rales or rhonchi. HEART: Regular rate and rhythm without murmurs ABDOMEN: Soft, nontender, nondistended abdomen. No guarding, no rebound. No masses appreciated. Female : deferred Musculoskeletal: Normal range of motion, no pitting or edema. No cyanosis. NEUROLOGICAL: Cranial nerves grossly intact. Normal speech, normal gait. Norm al sensory, motor exams PSYCH: Normal mood, normal affect. SKIN: Warm, Dry, normal turgor, no rashes or lesions noted. Course - Re-evaluation Re-evalutation: 05/07/20 08:25 Patient appears well, nontoxic, vital signs reviewed and are within normal limits. Nurses starting an IV at this time. She has already been given 30 mg of Toradol IV, she states that her pain has resolved. Laboratory investigations are pending. Laboratory 05/07/20 05/07/20 05/07/20 08:28 10:02 10:02 WBC 9.2 RBC 4.90 Hgb 13.2 Hct 38.7 MCV 79 L MCH 26.8 L MCHC 34.0 RDW 16.1 H Plt Count 254 Lymph % (Auto) 26.1 [place] % (Auto) 5.6 Eos % (Auto) 0.3 Baso % (Auto) 0.3 Absolute Neuts (auto) 6.2 Absolute Lymphs (auto) 2.4 Absolute Monos (auto) 0.5 Absolute Eos (auto) 0.0 Absolute Basos (auto) 0.0 Seg Neutrophils % 67.7 Sodium 137.3 Potassium 4.2 Chloride 106 Carbon Dioxide 24 Anion Gap 7 BUN 6 L Creatinine 0.52 Est GFR ( Amer) > 60 Est GFR (MDRD) Non-Af > 60 Glucose 92 Calcium 9.2 Total Bilirubin 0.4 Direct Bilirubin 0.0 Neonat Total Bilirubin Not Reportable Neonat Direct Bilirubin Not Reportable Neonat Indirect Bili Not Reportable AST 21 ALT 13 Alkaline Phosphatase 67 Total Protein 8.1 Albumin 4.3 Lipase 55.2 Serum HCG, Qual Urine Color STRAW Urine Appearance SLIGHTLY-CLOUDY Urine pH 6.0 Ur Specific [place] 1.005 Urine Protein 100 H Urine Glucose (UA) NEGATIVE Urine Ketones NEGATIVE Urine Blood MODERATE H Urine Nitrite NEGATIVE Urine Bilirubin NEGATIVE Urine Urobilinogen NEGATIVE Ur Leukocyte Esterase MODERATE H Urine WBC (Auto) 68 Urine RBC (Auto) 89 Urine Bacteria (Auto) TRACE Squamous Epi Cells Auto 2 Urine Mucus (Auto) RARE Urine Ascorbic Acid NEGATIVE 05/07/20 10:02 WBC RBC Hgb Hct MCV MCH MCHC RDW Plt Count Lymph % (Auto) [place] % (Auto) Eos % (Auto) Baso % (Auto) Absolute Neuts (auto) Absolute Lymphs (auto) Absolute Monos (auto) Absolute Eos (auto) Absolute Basos (auto) Seg Neutrophils % Sodium Potassium Chloride Carbon Dioxide Anion Gap BUN Creatinine Est GFR ( Amer) Est GFR (MDRD) Non-Af Glucose Calcium Total Bilirubin Direct Bilirubin Neonat Total Bilirubin Neonat Direct Bilirubin Neonat Indirect Bili AST ALT Alkaline Phosphatase Total Protein Albumin Lipase Serum HCG, Qual NEGATIVE Urine Color Urine Appearance Urine pH Ur Specific [place] Urine Protein Urine Glucose (UA) Urine Ketones Urine Blood Urine Nitrite Urine Bilirubin Urine Urobilinogen Ur Leukocyte Esterase Urine WBC (Auto) Urine RBC (Auto) Urine Bacteria (Auto) Squamous Epi Cells Auto Urine Mucus (Auto) Urine Ascorbic Acid Abdomen/Pelvis CT 05/07/20 09:51 IMPRESSION: No evidence of urolithiasis or obstructive uropathy. No findings to correlate to the patient's reported left flank pain. Patient given IV fluids and 1 g of ceftriaxone IV. She does have a urinary tract infection. No evidence of urolithiasis. ED return precautions discussed, patient verbalized understanding and agreement with plan. - Vital Signs Vital signs: Temp Pulse Resp BP Pulse Ox 98.4 F 66 18 111/59 L 99 05/07/20 11:37 05/07/20 11:37 05/07/20 11:37 05/07/20 11:37 05/07/20 11:37 - Laboratory Result Diagrams: 05/07/20 10:02 05/07/20 10:02 Laboratory results interpreted by me: 05/07/20 05/07/20 05/07/20 08:28 10:02 10:02 MCV 79 L MCH 26.8 L RDW 16.1 H BUN 6 L Urine Protein 100 H Urine Blood MODERATE H Ur Leukocyte Esterase MODERATE H Discharge - Discharge Clinical Impression: UTI (urinary tract infection) Qualifiers: Urinary tract infection type: site unspecified Hematuria presence: with h ematuria Qualified Code(s): N39.0 - Urinary tract infection, site not specified Condition: Stable Disposition: HOME, SELF-CARE Additional Instructions: Your urine shows findings consistent with a urinary tract infection. Please take all the antibiotics as directed even if your symptoms have improved. Please follow-up with your primary care physician as needed. Return to emergency room if you develop fever >101F, persistent vomiting, become lethargic, have severe pain in your sides, or any other symptoms that are concerning to you. Prescriptions: Cephalexin [Keflex] 500 mg PO QID #28 capsule Forms: Return to Work Referrals: STEPH YBARRA DO [Primary Care Provider] - Follow up as needed
[2020-05-07 08:51] LABS: APPEARANCE,URINE SLIGHTLY-CLOUDY; BILIRUBIN,URINE NEGATIVE (NEGATIVE); COLOR,URINE STRAW; GLUCOSE, URINE NEGATIVE (NEGATIVE); KETONES,URINE NEGATIVE (NEGATIVE); LEUKOCYTE ESTERASE,URINE MODERATE (NEGATIVE); NITRITE,URINE NEGATIVE (NEGATIVE); PROTEIN,URINE 100 mg/dL (NEGATIVE); URINE SPECIFIC GRAVITY 1.005; UROBILINOGEN,URINE NEGATIVE mg/dL (<2.0)
[2020-05-07] MEDS ORDERED: NORMAL SALINE 1000 ML 1,000 ML IV ONE (09:09)
[2020-05-07] MEDS ORDERED: CEFTRIAXONE 1 GM/D5W RTU 1 GM/50 ML RTUPB IV ONE (09:30)
[2020-05-07 10:22] LABS: ABSOLUTE LYMPHOCYTES (AUTO) 2.4 10^3/uL (0.5-4.7); ABSOLUTE MONOCYTES (AUTO) 0.5 10^3/uL (0.1-1.4); ABSOLUTE NEUT (AUTO) 6.2 10^3/uL (1.7-8.2); BASOPHILS % (AUTO) 0.3 % (0-2); EOSINOPHILS % (AUTO) 0.3 % (0-6); HEMATOCRIT 38.7 % (36.0-47.0); HEMOGLOBIN 13.2 g/dL (12.0-15.5); LYMPHOCYTES % (AUTO) 26.1 % (13-45); MEAN CORPUSCULAR HEMOGLOBIN 26.8 pg (27.0-33.4); MEAN CORPUSCULAR VOLUME 79 fl (80-97); MONOCYTES % (AUTO) 5.6 % (3-13); PLATELET COUNT 254 10^3/uL (150-450); RED CELL DISTRIBUTION WIDTH 16.1 % (11.5-14.0); SEGMENTED NEUTROPHILS % (AUTO) 67.7 % (42-78); TOTAL CELLS COUNTED % (AUTO) 100 %; WHITE BLOOD COUNT 9.2 10^3/uL (4.0-10.5)
[2020-05-07 10:35] LABS: ALBUMIN 4.3 g/dL (3.5-5.0); ALKALINE PHOSPHATASE 67 U/L (38-126); ANION GAP 7 (5-19); ASPARTATE AMINO TRANSFERASE 21 U/L (14-36); BILIRUBIN,TOTAL 0.4 mg/dL (0.2-1.3); BLOOD UREA NITROGEN 6 mg/dL (7-20); CALCIUM 9.2 mg/dL (8.4-10.2); CARBON DIOXIDE 24 mmol/L (22-30); CHLORIDE 106 mmol/L (98-107); GLUCOSE 92 mg/dL (75-110); POTASSIUM 4.2 mmol/L (3.6-5.0); TOTAL PROTEIN 8.1 g/dL (6.3-8.2)
--- NOTE | 2020-05-07 10:55 | RADIOLOGY REPORT (SQ) ---
EXAM DESCRIPTION: CT ABD/PELVIS NO ORAL OR IV IMAGES COMPLETED DATE/TIME: 05/07/2020 10:41 am REASON FOR STUDY: Left flank pain COMPARISON: None. TECHNIQUE: CT scan of the abdomen and pelvis performed without intravenous or oral contrast. Images reviewed with lung, soft tissue, and bone windows. Reconstructed coronal and sagittal MPR images revi ewed. All images stored on PACS. All CT scanners at this facility use dose modulation, iterative reconstruction, and/or weight based d osing when appropriate to reduce radiation dose to as low as reasonably achievable (ALARA). [facility]: Dose Right [facility]: CareDose [facility]: Dose Right [facility]: Teradose 4D [facility]: Smart [place] [employer] Equipment RADIATION DOSE: CT Rad equipment meets quality standard of care and radiation dose reduction techniq ues were employed. CTDIvol: 7.6 mGy. DLP: 385 mGy-cm.mGy. LIMITATIONS: None. FINDINGS: LOWER CHEST: No significant findings. No nodules or infiltrates. NON-CONTRASTED LIVER, SPLEEN, ADRENALS: Evaluation limited by lack of IV contrast. No identified sign ificant masses. PANCREAS: No masses. No peripancreatic inflammatory changes. GALLBLADDER: No identified stones by CT criteria. No inflammatory changes to suggest cholecystitis. RIGHT KIDNEY AND URETER: No suspicious masses. Assessment limited by lack of IV contrast. No signif icant calcifications. No hydronephrosis or hydroureter. LEFT KIDNEY AND URETER: No suspicious masses. Assessment limited by lack of IV contrast. No signifi cant calcifications. No hydronephrosis or hydroureter. AORTA AND RETROPERITONEUM: No aneurysm. No retroperitoneal masses or adenopathy. BOWEL AND PERITONEAL CAVITY: No obvious masses or inflammatory changes. No free fluid. APPENDIX: Normal. PELVIS, BLADDER, AND ABDOMINAL WALL:No abnormal masses. No free fluid. Bladder normal. BONES: No significant findings. OTHER: No other significant finding. IMPRESSION: No evidence of urolithiasis or obstructive uropathy. No findings to correlate to the pa tient's reported left flank pain. COMMENT: Quality ID # [id number]: Final reports with documentation of one or more dose reduction techniques (e.g., Automated exposure control, adjustment of the mA and/or kV according to patient size, use of iterative reconstruction technique) TECHNICAL DOCUMENTATION: JOB ID: [id number] [employer]- All Rights Reserved Reading location - IP/workstation name: [email or web address]
[2020-05-07 11:39] VITALS: BP 111/59
== END 2020-05-07 11:39 | disposition home or self-care (01) ==
LOC: ER 07:04
DX: N39.0 Urinary tract infection, site not specified (principal); R31.9 Hematuria, unspecified; R19.7 Diarrhea, unspecified; Z88.6 Allergy status to analgesic agent; Z88.5 Allergy status to narcotic agent
CPT/HCPCS: 99285; 96365; 36415; 83690; 84703; 85025; 80053; 81001; 74176; J1885; J7030; J0696